=== PATIENT | male | born 1930 | race Caucasian/White ===

== ENCOUNTER 2018-03-30 09:30 | Inpatient (IN) | payer MEDICARE, BC ==
[2018-03-30] MEDS ORDERED: Lactated Ringers 1,000 ML IV SCH ×4 (09:45→20:30)
[2018-03-30] MEDS ORDERED: Piperacillin/Tazobactam 4.5 GM in Sodium Chloride 0.9% 100 ML IV ONE (09:45)
[2018-03-30] MEDS ORDERED: Piperacillin/Tazobactam/Dext 4.5 GM in Premix Bag 1 BAG IV ONE (10:00)
--- NOTE | 2018-03-30 11:00 | CR ---
CHEST: 2 view CLINICAL HISTORY:Septic COMPARISON:28 February 2018 FINDINGS: Pulmonary vascularity is cephalized. Heart is mildly enlarged. There are atherosclerotic c hanges in the aorta.. There is some mild generalized interstitial prominence. There is some patchy density in the left lowe r lobe IMPRESSION: Vascular cephalization may represent pulmonary venous hypertension. The there is mild ge neralized interstitial prominence which may represent mild interstitial edema. The some of this is ch ronic Patchy left lower lobe density may represent pneumonic infiltrate or patchy atelectasis
[2018-03-30] MEDS ORDERED: Furosemide 40 MG/4 ML VIAL IVPUSH ONE (12:15)
[2018-03-30] MEDS ORDERED: Albuterol/Ipratropium 3.0-0.5 MG/3 ML Neb Soln NEB ONE (12:15)
--- NOTE | 2018-03-30 12:47 | PCM.HP ---
H&P History of Present Illness - General Date of Service: 03/30/18 Admit Problem/Dx: Admission Diagnosis/Problem Admission Diagnosis/Problem Pneumonia Source of Information: Patient, Family, Provider, RN Notes Reviewed History Limitations: Reports: Respiratory Distress - History of Present Illness Initial Comments - Free Text/Narative: Mr. Florez is an 88-year-old gentleman who is admitted through the emergency department with shortness of breath, fever, and weakness secondary to right lung pneumonia and sepsis. Proximally one month ago was hospitalized with a perirectal abscess and then was transferred to [facility] in [place] for further evaluation and management. He underwent debridement of the abscess which is still open and has remained on antibiotic therapy with ciprofloxacin. He seemed to be progressing well until this morning when he noted shortness of breath, cough, and weakness. On evaluation in the emergency department he is noted to have a probable right lung infiltrate associated with elevation in white blood cell count. While in the emergency department developed more acute respiratory failure with hypoxia and was placed on noninvasive positive pressure ventilation. Blood cultures have been obtained and he's received initial antibiotic therapy in the emergency department with Zosyn and vancomycin. Right Pain Score (Numeric/FACES): 2 - Related Data Allergies/Adverse Reactions: Allergies Allergy/AdvReac Type Severity Reaction Status Date / Time diphenhydramine Allergy Itching Verified 03/30/18 10:28 [From Unisom (diphenhydramine)] ketorolac [From Toradol] Allergy Itching Verified 03/30/18 10:28 Home Medications: Home Meds Allopurinol [Zyloprim] 300 mg PO DAILY 02/20/18 [History] Doxazosin Mesylate [Cardura] 8 mg PO DAILY 02/20/18 [History] Levothyroxine Sodium [Levo-T] 75 mcg PO DAILY 02/20/18 [History] Lisinopril 20 mg PO DAILY 02/20/18 [History] Nitroglycerin [Nitrostat] 0.4 mg PO ASDIRECTED 02/20/18 [History] Simvastatin 20 mg PO DAILY 02/20/18 [History] Warfarin Sodium 2.5 mg PO DAILY 02/20/18 [History] hydroCHLOROthiazide [Hydrochlorothiazide] 12.5 mg PO DAILY 02/20/18 [History] Acetaminophen [Tylenol] 2 tab PO Q4HR PRN 03/30/18 [History] Aspirin [Halfprin] 81 mg PO DAILY 03/30/18 [History] Furosemide [Lasix] 20 mg PO BID 03/30/18 [History] Magnesium Oxide 400 mg PO BID 03/30/18 [History] Metoprolol Succinate [Toprol XL] 25 mg PO DAILY 03/30/18 [History] Past Medical History HEENT History: Reports: Cataract, Impaired Vision Cardiovascular History: Reports: High Cholesterol, Hypertension, Stents Gastrointestinal History: Reports: Other (See Below) Other Gastrointestinal History: "sore rectum" Musculoskeletal History: Reports: Arthritis, Gout Endocrine/Metabolic History: Reports: Hypothyroidism Hematologic History: Reports: Anticoagulation Therapy Oncologic (Cancer) History: Reports: Other (See Below) Other Oncologic History: "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" Dermatologic History: Reports: Other (See Below) - Infectious Disease History Infectious Disease History: Reports: Measles, Mumps - Past Surgical History Head Surgeries/Procedures: Reports: None HEENT Surgical History: Reports: Cataract Surgery, Oral Surgery Cardiovascular Surgical History: Reports: Coronary Artery Stent GI Surgical History: Reports: Appendectomy, Colon, Colonoscopy, Other (See Below ) Other GI Surgeries/Procedures: 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 Endocrine Surgical History: Reports: None Musculoskeletal Surgical History: Reports: Amputation, Knee Replacement, Shoulder Surgery Oncologic Surgical History: Reports: Other (See Below) Other Oncologic Surgeries/Procedures: right middle finger Social & Family History - Family History Family Medical History: Noncontributory - Tobacco Use Smoking Status *Q: Former Smoker Used Tobacco, but Quit: Yes Month/Year Tobacco Last Used: 1975 - Caffeine Use Caffeine Use: Reports: Coffee, Tea - Recreational Drug Use Recreational Drug Use: No H&P Review of Systems - Review of Systems: Review Of Systems: See Below General: Reports: Fever, Chills, Weakness, Diaphoresis, Decreased Appetite HEENT: Reports: No Symptoms Pulmonary: Reports: Shortness of Breath, Cough. Denies: Wheezing, Sputum, Hemoptysis Cardiovascular: Reports: Dyspnea on Exertion, Edema. Denies: Chest Pain, Palpitations, Orthopnea, PND, Lightheadedness Gastrointestinal: Reports: No Symptoms Genitourinary: Reports: No Symptoms Musculoskeletal: Reports: No Symptoms Skin: Reports: No Symptoms Psychiatric: Reports: No Symptoms Neurological: Reports: No Symptoms Hematologic/Lymphatic: Reports: No Symptoms Immunologic: Reports: No Symptoms Exam - Exam Exam: See Below - Vital Signs Vital Signs: Last Vital Signs Temp 212.5 F H 03/30/18 11:14 Pulse 89 03/30/18 11:22 Resp 28 H 03/30/18 11:22 BP 123/65 03/30/18 12:27 Pulse Ox 84 L 03/30/18 11:22 Weight: 180 lb - Exam Quality Assessment: Supplemental Oxygen (BiPAP), Urinary Catheter, DVT Prophylaxis General: Alert, Oriented, Cooperative, Moderate Distress HEENT: Conjunctiva Clear, Hearing Intact, Normal Nasal Septum, Posterior Pharynx Clear, Pupils Equal. No: Mucosa Moist & Wright Neck: Supple, Trachea Midline, +2 Carotid Pulse wo Bruit Lungs: Decreased Breath Sounds, Rales, Wheezing. No: Crackles, Rhonchi Cardiovascular: Regular Rate, Regular Rhythm, Normal S1, Normal S2. No: Systolic Murmur, Diastolic Murmur GI/Abdominal Exam: Soft, Non-Tender, No Organomegaly, No Distention Back Exam: Normal Inspection, Full Range of Motion Extremities: Non-Tender, Pedal Edema Skin: Wound (Open wound in the perineum from previous perirectal abscess) Neurological: Cranial Nerves Intact, Strength Equal Bilateral, Normal Speech, Normal Tone, Sensation Intact. No: Focal Deficit Neuro Extensive - Mental Status: Alert, Oriented x3, Normal Mood/Affect, Normal Cognition, Memory Intact - Patient Data Lab Results Last 24 hrs: Laboratory Results - last 24 hr 03/30/18 03/30/18 03/30/18 Range/Units 10:01 10:01 10:01 WBC 24.0 H (4.5-11.0) K/uL RBC 3.37 L (4.30-5.90) M/uL Hgb 11.6 L D (12.0-15.0) g/dL Hct 35.0 L (40.0-54.0) % MCV 104 H (80-98) fL MCH 34 H (27-31) pg MCHC 33 (32-36) % Plt Count 301 (150-400) K/uL Neut % (Auto) 84 H (36-66) % Lymph % (Auto) 7 L (24-44) % Madison % (Auto) 9 H (2-6) % Eos % (Auto) 0 L (2-4) % Baso % (Auto) 0 (0-1) % PT 11.3 (9.5-12.0) sec INR 1.03 (0.80-1.20) Sodium 137 L (140-148) mmol/L Potassium 3.7 (3.6-5.2) mmol/L Chloride 103 (100-108) mmol/L Carbon Dioxide 25 (21-32) mmol/L Anion Gap 12.7 (5.0-14.0) mmol/L BUN 17 (7-18) mg/dL Creatinine 1.1 (0.8-1.3) mg/dL Est Cr Clr Drug Dosing 47.93 mL/min Estimated GFR (MDRD) > 60 (>60) Glucose 94 (74-106) mg/dL Lactic Acid (0.4-2.0) mmol/L Calcium 8.3 L (8.5-10.1) mg/dL Total Bilirubin 0.8 (0.2-1.0) mg/dL AST 19 (15-37) U/L ALT 19 (12-78) U/L Alkaline Phosphatase 117 H (46-116) U/L Total Protein 6.2 L (6.4-8.2) g/dL Albumin 2.5 L (3.4-5.0) g/dL Globulin 3.7 H (2.3-3.5) g/dL Albumin/Globulin Ratio 0.7 L (1.2-2.2) 03/30/18 Range/Units 10:01 WBC (4.5-11.0) K/uL RBC (4.30-5.90) M/uL Hgb (12.0-15.0) g/dL Hct (40.0-54.0) % MCV (80-98) fL MCH (27-31) pg MCHC (32-36) % Plt Count (150-400) K/uL Neut % (Auto) (36-66) % Lymph % (Auto) (24-44) % Madison % (Auto) (2-6) % Eos % (Auto) (2-4) % Baso % (Auto) (0-1) % PT (9.5-12.0) sec INR (0.80-1.20) Sodium (140-148) mmol/L Potassium (3.6-5.2) mmol/L Chloride (100-108) mmol/L Carbon Dioxide (21-32) mmol/L Anion Gap (5.0-14.0) mmol/L BUN (7-18) mg/dL Creatinine (0.8-1.3) mg/dL Est Cr Clr Drug Dosing mL/min Estimated GFR (MDRD) (>60) Glucose (74-106) mg/dL Lactic Acid 2.2 H (0.4-2.0) mmol/L Calcium (8.5-10.1) mg/dL Total Bilirubin (0.2-1.0) mg/dL AST (15-37) U/L ALT (12-78) U/L Alkaline Phosphatase (46-116) U/L Total Protein (6.4-8.2) g/dL Albumin (3.4-5.0) g/dL Globulin (2.3-3.5) g/dL Albumin/Globulin Ratio (1.2-2.2) Result Diagrams: 03/30/18 10:01 03/30/18 10:01 *Q Meaningful Use (ADM) - VTE Risk Assess *Q Each Risk Factor Represents 1 Point: Swollen Legs, Current, Congestive heart failure (CHF) Total Score 1 Point Risk Factors: 2 Each Risk Factor Represents 2 Points: None Total Score 2 Point Risk Factors: 0 Each Risk Factor Represents 3 Points: Age 75 Years or Greater Total Score 3 Point Risk Factors: 3 Each Risk Factor Represents 5 Points: None Total Score 5 Point Risk Factors: 0 Venous Thromboembolism Risk Factor Score *Q: 5 Problem List Initiated/Reviewed/Updated: Yes Orders Last 24hrs: Active Orders 24 hr Category Date Time Status Patient Status Manage Transfer [TRANSFER] Routine ADT 03/30/18 12:35 Ordered Francis Catheter Insertion [Insert Urinary Catheter] [OM. Care 03/30/18 11:15 Ordered PC] Q24H RT Aerosol Therapy [RC] ASDIRECTED Care 03/30/18 12:16 Active Urinary Catheter Assessment [RC] ASDIRECTED Care 03/30/18 11:02 Active CULTURE BLOOD [BC] Urgent Lab 03/30/18 09:55 Received CULTURE BLOOD [BC] Urgent Lab 03/30/18 10:00 Received CULTURE URINE [RM] Stat Lab 03/30/18 10:31 Received UA W/MICROSCOPIC [URIN] Stat Lab 03/30/18 09:43 Ordered Lactated Ringers [Ringers, Lactated] 1,000 ml Med 03/30/18 09:45 Active IV ASDIRECTED Vancomycin 1.5 gm Med 03/30/18 12:15 Active Sodium Chloride 0.9% [Normal Saline] 250 ml IV ONETIME Blood Culture x2 Reflex Set [OM.PC] Stat Oth 03/30/18 09:41 Ordered Blood Culture x2 Reflex Set [OM.PC] Urgent Oth 03/30/18 11:23 Ordered Resuscitation Status Routine Resus Stat 03/30/18 12:39 Ordered Medication Orders Lactated Ringer's (Ringers, Lactated) 1,000 mls @ 999 mls/hr IV ASDIRECTED INDRA Last Admin: 03/30/18 10:18 Dose: 999 mls/hr Vancomycin HCl 1.5 gm/ Sodium (Chloride) 250 mls @ 150 mls/hr IV ONETIME ONE Stop: 03/30/18 13:54 Last Admin: 03/30/18 12:20 Dose: 150 mls/hr Assessment/Plan Comment:: ASSESSMENT AND PLAN RIGHT LUNG PNEUMONIA WITH SEPSIS-abrupt onset of symptoms this morning, associated with hypoxic respiratory failure. Chest x-ray shows evidence of a right lung infiltrate and labs document significant leukocytosis. He has a recent history of perirectal abscess requiring surgical drainage and ongoing antibiotic therapy. -Blood cultures pending -Aggressive IV fluid replacement per sepsis protocol -Because of recent antibiotic therapy will proceed with broad-spectrum IV antibiotics; vancomycin, Zosyn, and Azactam, pending culture results ACUTE HYPOXIC RESPIRATORY FAILURE-secondary to pneumonia and sepsis, question of possible fluid overload with pulmonary edema. He has improved since being placed on noninvasive positive pressure ventilation. -Continue BiPAP -Supplemental oxygen as needed -Nebulized albuterol and duo nebs PERIRECTAL ABSCESS-status post surgical debridement and ongoing antibiotic therapy -Continue current wound cares MAINTENANCE ISSUES -DVT prophylaxis; Lovenox 40 mg subcutaneous daily -GI prophylaxis; Protonix 40 mg by mouth daily -Francis catheter; we use to closely monitor urine output, remove as soon as possible -Nutrition; regular diet -Nicotine dependence; not required CODE STATUS-DNR/DNI ADMISSION STATUS-patient will be admitted to inpatient status, expect at least a 2 night hospital stay for evaluation and management of problems as outlined above. At the time of this admission I do not reasonably expected evaluation and management of this problem will require more than a 96 hour hospital stay. DISPOSITION-anticipate discharge to home after the hospital stay. PRIMARY CARE PROVIDER-Dr. Jad Butterfield
--- NOTE | 2018-03-30 12:54 | EDM.PDOC ---
ED HPI GENERAL MEDICAL PROBLEM - General Chief Complaint: Fever Stated Complaint: [facility] Time Seen by Provider: 03/30/18 09:40 Source of Information: Reports: Patient, EMS, Family History Limitations: Reports: No Limitations - History of Present Illness INITIAL COMMENTS - FREE TEXT/NARRATIVE: 88 yo with hx of prior CA, recent hospitalization at [facility] [place] for jessica-rectal abscess and concern for possible necrotizing infection at this site. He presents today from his [facility] for fever. Noted to be febrile overnight. Accompanied by mild cough. Denies confusion, headache, significant pain. Rectal wound is stable, denies increasing pain or discharge. He is currently on ciprofloxacin. Has an indwelling doe since surgery. Acting at baseline per his family who accompany him. Right Pain Score (Numeric/FACES): 2 - Related Data Allergies Allergy/AdvReac Type Severity Reaction Status Date / Time diphenhydramine Allergy Itching Verified 03/30/18 10:28 [From Unisom (diphenhydramine)] ketorolac [From Toradol] Allergy Itching Verified 03/30/18 10:28 Home Meds: Home Meds Allopurinol [Zyloprim] 300 mg PO DAILY 02/20/18 [History] Doxazosin Mesylate [Cardura] 8 mg PO DAILY 02/20/18 [History] Levothyroxine Sodium [Levo-T] 75 mcg PO DAILY 02/20/18 [History] Lisinopril 20 mg PO DAILY 02/20/18 [History] Metoprolol Tartrate 25 mg PO DAILY 02/20/18 [History] Nitroglycerin [Nitrostat] 0.4 mg PO ASDIRECTED 02/20/18 [History] Simvastatin 20 mg PO DAILY 02/20/18 [History] Warfarin Sodium 2.5 mg PO DAILY 02/20/18 [History] hydroCHLOROthiazide [Hydrochlorothiazide] 12.5 mg PO DAILY 02/20/18 [History] Acetaminophen [Tylenol] 2 tab PO Q4HR PRN 03/30/18 [History] Aspirin [Halfprin] 81 mg PO DAILY 03/30/18 [History] Furosemide [Lasix] 20 mg PO BID 03/30/18 [History] Magnesium Oxide 400 mg PO BID 03/30/18 [History] Past Medical History HEENT History: Reports: Cataract, Impaired Vision Cardiovascular History: Reports: High Cholesterol, Hypertension, Stents Gastrointestinal History: Reports: Other (See Below) Other Gastrointestinal History: "sore rectum" Musculoskeletal History: Reports: Arthritis, Gout Endocrine/Metabolic History: Reports: Hypothyroidism Hematologic History: Reports: Anticoagulation Therapy Oncologic (Cancer) History: Reports: Other (See Below) Other Oncologic History: "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" Dermatologic History: Reports: Other (See Below) - Infectious Disease History Infectious Disease History: Reports: Measles, Mumps - Past Surgical History Head Surgeries/Procedures: Reports: None HEENT Surgical History: Reports: Cataract Surgery, Oral Surgery Cardiovascular Surgical History: Reports: Coronary Artery Stent GI Surgical History: Reports: Appendectomy, Colon, Colonoscopy, Other (See Below ) Other GI Surgeries/Procedures: 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 Endocrine Surgical History: Reports: None Musculoskeletal Surgical History: Reports: Amputation, Knee Replacement, Shoulder Surgery Oncologic Surgical History: Reports: Other (See Below) Other Oncologic Surgeries/Procedures: right middle finger Social & Family History - Family History Family Medical History: Noncontributory - Tobacco Use Smoking Status *Q: Former Smoker Used Tobacco, but Quit: Yes Month/Year Tobacco Last Used: 1975 - Caffeine Use Caffeine Use: Reports: Coffee, Tea - Recreational Drug Use Recreational Drug Use: No ED ROS GENERAL - Review of Systems Review Of Systems: See Below Constitutional: Reports: Fever, Chills ED EXAM, SEPSIS - Physical Exam Exam: See Below Exam Limited By: No Limitations General Appearance: Alert, WD/WN Nose: Normal Inspection Throat/Mouth: Normal Inspection Head: Atraumatic, Normocephalic Neck: Supple, Non-Tender, Full Range of Motion Respiratory/Chest: Lungs Clear, No Accessory Muscle Use Cardiovascular: Regular Rate, Rhythm GI/Abdominal Exam: Soft, Non-Tender Rectal (Males) Exam: Other (rectal wound with healthy appearing beefy-red tissue , no discharge) Back: Normal Inspection Extremities: Normal Inspection Neurological: Alert, Oriented Psychiatric: Normal Affect Skin: Warm, Dry Course - Vital Signs Last Recorded V/S: Last Vital Signs Temp 100.3 C H 03/30/18 11:14 Pulse 89 03/30/18 11:22 Resp 28 H 03/30/18 11:22 BP 123/65 03/30/18 12:27 Pulse Ox 84 L 03/30/18 11:22 - Orders/Labs/Meds Orders: Active Orders 24 hr Category Date Time Status CULTURE BLOOD [BC] Urgent Lab 03/30/18 09:55 Received CULTURE BLOOD [BC] Urgent Lab 03/30/18 10:00 Received CULTURE URINE [RM] Stat Lab 03/30/18 10:31 Received UA W/MICROSCOPIC [URIN] Stat Lab 03/30/18 09:43 Ordered Vancomycin 1.5 gm Med 03/30/18 12:15 Active Sodium Chloride 0.9% [Normal Saline] 250 ml IV ONETIME Blood Culture x2 Reflex Set [OM.PC] Stat Oth 03/30/18 09:41 Ordered Blood Culture x2 Reflex Set [OM.PC] Urgent Oth 03/30/18 11:23 Ordered Medication Orders Acetaminophen (Tylenol) 650 mg PO Q4H PRN PRN Reason: Pain (Mild 1-3)/fever Albuterol (Proventil Neb Soln) 2.5 mg NEB Q4H PRN PRN Reason: Shortness Of Breath/wheezing Albuterol/Ipratropium (Duoneb 3.0-0.5 Mg/3 Ml) 3 ml INH ONETIME [facility] Allopurinol (Zyloprim) 300 mg PO DAILY [facility] Aspirin (Halfprin) 81 mg PO DAILY [facility] Hydrochlorothiazide (Hydrochlorothiazide) 12.5 mg PO DAILY [facility] Vancomycin HCl 1.5 gm/ Sodium (Chloride) 250 mls @ 150 mls/hr IV ONETIME ONE Stop: 03/30/18 13:54 Last Admin: 03/30/18 12:20 Dose: 150 mls/hr Aztreonam 1 gm/ Sodium (Chloride) 100 mls @ 200 mls/hr IV Q8HR [facility] Piperacillin Sod/Tazobactam (Sod 3.375 gm/ Sodium Chloride) 50 mls @ 100 mls/ hr IV Q6H [facility] Lactobacillus Rhamnosus (Culturelle) 2 cap PO BID [facility] Lisinopril (Prinivil) 20 mg PO DAILY [facility] Magnesium Hydroxide (Milk Of Magnesia) 30 ml PO Q12H PRN PRN Reason: Constipation Magnesium Oxide (Magnesium Oxide) 400 mg PO BID [facility] Metoprolol Tartrate (Lopressor) 25 mg PO DAILY [facility] Non-Formulary Medication (Doxazosin Mesylate [Cardura]) 8 mg PO DAILY [facility] Non-Formulary Medication (Levothyroxine Sodium [Levo-T]) 75 mcg PO DAILY [facility] Ondansetron HCl (Zofran) 4 mg IV Q4H PRN PRN Reason: Nausea/Vomiting Oxycodone HCl (Oxycodone) 5 mg PO Q4H PRN PRN Reason: Pain (moderate 4-6) Pantoprazole Sodium (Protonix Iv) 40 mg IVPUSH Q24H [facility] Polyethylene Glycol (Miralax) 17 gm PO DAILY PRN PRN Reason: Constipation Senna/Docusate Sodium (Senna Plus) 1 tab PO BID PRN PRN Reason: Constipation Simvastatin (Zocor) 20 mg PO DAILY [facility] Sodium Chloride (Saline Flush) 10 ml FLUSH ASDIRECTED PRN PRN Reason: Keep Vein Open Vancomycin HCl (Vancomycin) 1 gm IV .PHARMACY TO DOSE [facility] Warfarin Sodium (Coumadin) 2.5 mg PO DAILY [facility] Labs: Laboratory Tests 03/30/18 03/30/18 03/30/18 Range/Units 10:01 10:01 10:01 WBC 24.0 H (4.5-11.0) K/uL RBC 3.37 L (4.30-5.90) M/uL Hgb 11.6 L D (12.0-15.0) g/dL Hct 35.0 L (40.0-54.0) % MCV 104 H (80-98) fL MCH 34 H (27-31) pg MCHC 33 (32-36) % Plt Count 301 (150-400) K/uL Neut % (Auto) 84 H (36-66) % Lymph % (Auto) 7 L (24-44) % [place] % (Auto) 9 H (2-6) % Eos % (Auto) 0 L (2-4) % Baso % (Auto) 0 (0-1) % PT 11.3 (9.5-12.0) sec INR 1.03 (0.80-1.20) Sodium 137 L (140-148) mmol/L Potassium 3.7 (3.6-5.2) mmol/L Chloride 103 (100-108) mmol/L Carbon Dioxide 25 (21-32) mmol/L Anion Gap 12.7 (5.0-14.0) mmol/L BUN 17 (7-18) mg/dL Creatinine 1.1 (0.8-1.3) mg/dL Est Cr Clr Drug Dosing 47.93 mL/min Estimated GFR (MDRD) > 60 (>60) Glucose 94 (74-106) mg/dL Lactic Acid (0.4-2.0) mmol/L Calcium 8.3 L (8.5-10.1) mg/dL Total Bilirubin 0.8 (0.2-1.0) mg/dL AST 19 (15-37) U/L ALT 19 (12-78) U/L Alkaline Phosphatase 117 H (46-116) U/L Total Protein 6.2 L (6.4-8.2) g/dL Albumin 2.5 L (3.4-5.0) g/dL Globulin 3.7 H (2.3-3.5) g/dL Albumin/Globulin Ratio 0.7 L (1.2-2.2) 03/30/18 Range/Units 10:01 WBC (4.5-11.0) K/uL RBC (4.30-5.90) M/uL Hgb (12.0-15.0) g/dL Hct (40.0-54.0) % MCV (80-98) fL MCH (27-31) pg MCHC (32-36) % Plt Count (150-400) K/uL Neut % (Auto) (36-66) % Lymph % (Auto) (24-44) % [place] % (Auto) (2-6) % Eos % (Auto) (2-4) % Baso % (Auto) (0-1) % PT (9.5-12.0) sec INR (0.80-1.20) Sodium (140-148) mmol/L Potassium (3.6-5.2) mmol/L Chloride (100-108) mmol/L Carbon Dioxide (21-32) mmol/L Anion Gap (5.0-14.0) mmol/L BUN (7-18) mg/dL Creatinine (0.8-1.3) mg/dL Est Cr Clr Drug Dosing mL/min Estimated GFR (MDRD) (>60) Glucose (74-106) mg/dL Lactic Acid 2.2 H (0.4-2.0) mmol/L Calcium (8.5-10.1) mg/dL Total Bilirubin (0.2-1.0) mg/dL AST (15-37) U/L ALT (12-78) U/L Alkaline Phosphatase (46-116) U/L Total Protein (6.4-8.2) g/dL Albumin (3.4-5.0) g/dL Globulin (2.3-3.5) g/dL Albumin/Globulin Ratio (1.2-2.2) Meds: Medications Generic Name Dose Route Start Last Admin Trade Name Freq PRN Reason Stop Dose Admin Acetaminophen 650 mg 03/30/18 13:03 Tylenol PO Q4H PRN Pain (Mild 1-3)/fever Albuterol 2.5 mg 03/30/18 13:03 Proventil Neb Soln NEB Q4H PRN Shortness Of Breath/wheezing Albuterol/Ipratropium 3 ml 03/30/18 13:03 Duoneb 3.0-0.5 Mg/3 Ml INH ONETIME [facility] Allopurinol 300 mg 03/31/18 09:00 Zyloprim PO DAILY [facility] Aspirin 81 mg 03/31/18 09:00 Halfprin PO DAILY [facility] Hydrochlorothiazide 12.5 mg 03/31/18 09:00 Hydrochlorothiazide PO DAILY [facility] Vancomycin HCl 1.5 gm/ Sodium 250 mls @ 150 mls/hr 03/30/18 12:15 03/30/18 12 :20 Chloride IV 03/30/18 13:54 150 mls/hr ONETIME ONE Administration Aztreonam 1 gm/ Sodium 100 mls @ 200 mls/hr 03/30/18 14:00 Chloride IV Q8HR [facility] Piperacillin Sod/Tazobactam 50 mls @ 100 mls/hr 03/30/18 13:03 Sod 3.375 gm/ Sodium Chloride IV Q6H [facility] Lactobacillus Rhamnosus 2 cap 03/30/18 13:03 Culturelle PO BID [facility] Lisinopril 20 mg 03/31/18 09:00 Prinivil PO DAILY [facility] Magnesium Hydroxide 30 ml 03/30/18 13:03 Milk Of Magnesia PO Q12H PRN Constipation Magnesium Oxide 400 mg 03/30/18 21:00 Magnesium Oxide PO BID [facility] Metoprolol Tartrate 25 mg 03/31/18 09:00 Lopressor PO DAILY [facility] Non-Formulary Medication 8 mg 03/31/18 09:00 Doxazosin Mesylate [Cardura] PO DAILY [facility] Non-Formulary Medication 75 mcg 03/31/18 09:00 Levothyroxine Sodium [Levo-T] PO DAILY [facility] Ondansetron HCl 4 mg 03/30/18 13:03 Zofran IV Q4H PRN Nausea/Vomiting Oxycodone HCl 5 mg 03/30/18 13:03 Oxycodone PO Q4H PRN Pain (moderate 4-6) Pantoprazole Sodium 40 mg 03/30/18 13:03 Protonix Iv IVPUSH Q24H [facility] Polyethylene Glycol 17 gm 03/30/18 13:03 Miralax PO DAILY PRN Constipation Senna/Docusate Sodium 1 tab 03/30/18 13:03 Senna Plus PO BID PRN Constipation Simvastatin 20 mg 03/31/18 09:00 Zocor PO DAILY [facility] Sodium Chloride 10 ml 03/30/18 13:03 Saline Flush FLUSH ASDIRECTED PRN Keep Vein Open Vancomycin HCl 1 gm 03/30/18 13:03 Vancomycin IV .PHARMACY TO DOSE [facility] Warfarin Sodium 2.5 mg 03/31/18 09:00 Coumadin PO DAILY [facility] Discontinued Medications Generic Name Dose Route Start Last Admin Trade Name Freq PRN Reason Stop Dose Admin Albuterol/Ipratropium 3 ml 03/30/18 12:15 03/30/18 12:31 Duoneb 3.0-0.5 Mg/3 Ml NEB 03/30/18 12:16 3 ml ONETIME ONE Administration Furosemide 40 mg 03/30/18 12:15 03/30/18 12:27 Lasix IVPUSH 03/30/18 12:16 40 mg ONETIME ONE Administration Lactated Ringer's 1,000 mls @ 999 mls/hr 03/30/18 09:45 03/30/18 10:18 Ringers, Lactated IV 999 mls/hr ASDIRECTED [facility] Administration Piperacillin/Tazobactam/ 100 mls @ 200 mls/hr 03/30/18 10:00 03/30/18 10:18 Dextrose 4.5 gm/ Premix IV 03/30/18 10:29 200 mls/hr Q6H ONE Administration - Re-Assessments/Exams Free Text/Narrative Re-Assessment/Exam: 80-year-old gentleman with recent history of perirectal abscess and concern for necrotizing infection presents with fever and concern for sepsis. He was initially resuscitated with a lactated Ringer's infusion, broad-spectrum antibiotics were administered upon arrival in the and labs are drawn. His initial workup was significant for a new right lower lobe infiltrate on chest x- ray. Blood work showed a leukocytosis at 24 as well as a mild elevation in his lactate. His old Doe was exchanged for a new, UA was eventually drawn was still pending at time of admission While his workup was undertaken he developed increasing dyspnea and increased work of breathing. He was noted to desat in the high 70s on room air and required increasing levels of oxygen via nasal cannula. he was rigoring. Thoracic ultrasound performed at the bedside showed diffuse B lines indicative of pulmonary edema as well as a right pleural effusion and area concerning for possible consolidation as shown on chest x-ray. I am concerned that the fluid he received during his sepsis resuscitation may have tipped him into heart failure. Given his worsening respiratory status we did transition him to BiPAP and is more comfortable on this with improved oxygen saturations. Lengthy discussion with his family regarding his goals of care, his daughter and son were involved with this. We have decided that his CODE STATUS will be DNR/DNR. He is agreeable to BiPAP will not escalate to intubation. As it became more evident that he likely had a pulmonary infection we added vancomycin to cover HCAP The wound near his rectum looks healthy, no drainage, of course cannot rule out recurrent abscess without CT will defer this for now given tenuous respiratory status and likely alternative source for sepsis He is being admitted to the ICU for further cares 03/30/18 12:56 Departure - Departure Time of Disposition: 12:30 Disposition: Admitted As Inpatient 66 Clinical Impression: Acute respiratory failure with hypoxia Sepsis Qualifiers: Sepsis type: sepsis due to unspecified organism Qualified Code(s): A41.9 - Sepsis, unspecified organism Pneumonia Qualifiers: Pneumonia type: due to unspecified organism Pulmonary edema Qualifiers: Chronicity: acute Qualified Code(s): J81.0 - Acute pulmonary edema - Discharge Information *PRESCRIPTION DRUG MONITORING PROGRAM REVIEWED*: No *COPY OF PRESCRIPTION DRUG MONITORING REPORT IN PATIENT KEENAN: No Critical Care Note - Critical Care Note Total Time (mins): 33 Comments: 33 minutes of critical care time were spent resuscitate his abnormal vital signs , interpreting diagnostic tests and imaging, managing his tenuous respiratory status including transitioned to BiPAP, as well as discussion with his family and patient. - My Orders Last 24 Hours: My Active Orders 03/30/18 09:41 Blood Culture x2 Reflex Set [OM.PC] Stat 03/30/18 09:43 UA W/MICROSCOPIC [URIN] Stat 03/30/18 10:31 CULTURE URINE [RM] Stat 03/30/18 12:15 Vancomycin 1.5 gm Sodium Chloride 0.9% [Normal Saline] 250 ml IV ONETIME - Assessment/Plan Last 24 Hours: My Active Orders 03/30/18 09:41 Blood Culture x2 Reflex Set [OM.PC] Stat 03/30/18 09:43 UA W/MICROSCOPIC [URIN] Stat 03/30/18 10:31 CULTURE URINE [RM] Stat 03/30/18 12:15 Vancomycin 1.5 gm Sodium Chloride 0.9% [Normal Saline] 250 ml IV ONETIME
[2018-03-30] MEDS ORDERED: Magnesium Hydroxide 400 MG/5 ML Susp 30 ML Cup PO PRN (13:03)
[2018-03-30] MEDS ORDERED: Albuterol/Ipratropium 3.0-0.5 MG/3 ML Neb Soln INH SCH (13:03)
[2018-03-30] MEDS ORDERED: Albuterol 0.083% 2.5 MG/3 ML Neb Soln NEB PRN (13:03)
[2018-03-30] MEDS ORDERED: Vancomycin 1 GM SDV IV SCH (13:03)
[2018-03-30] MEDS ORDERED: oxyCODONE 5 MG Tab PO PRN (13:03)
[2018-03-30] MEDS ORDERED: Sodium Chloride 0.9% 10 ML Syringe FLUSH PRN (13:03)
[2018-03-30] MEDS ORDERED: Ondansetron 4 MG/2 ML SDV IV PRN (13:03)
[2018-03-30] MEDS ORDERED: Polyethylene Glycol 3350 Powder 17 GM Packet PO PRN (13:03)
[2018-03-30] MEDS ORDERED: Aztreonam 1 GM in Sodium Chloride 0.9% 100 ML IV SCH (14:00)
[2018-03-30] MEDS ORDERED: Warfarin 2.5 MG Tab PO SCH (14:00)
[2018-03-30] MEDS: Pantoprazole 40 MG Vial IVPUSH SCH (14:11)
[2018-03-30] MEDS: Lactobacillus Rhamnosus GG (Probiotic) Cap PO SCH ×2 (14:12→20:59)
[2018-03-30] MEDS: Aztreonam/Dextrose-Water 1 GM in Premix Bag 1 BAG IV SCH ×2 (14:16→22:36)
[2018-03-30] MEDS: Acetaminophen 325 MG Tab PO PRN ×2 (14:50→19:47)
[2018-03-30] MEDS ORDERED: Lactated Ringers 1,000 ML IV ONE (15:03)
[2018-03-30] MEDS: Enoxaparin 40 MG/0.4 ML Syringe SUBCUT SCH (16:00)
[2018-03-30] MEDS: Piperacillin/Tazobactam/Dext 3.375 GM in Premix Bag 1 BAG IV SCH ×2 (16:14→23:05)
[2018-03-30] MEDS ORDERED: Norepinephrine 4 MG/4 ML SDV ONE (18:37)
[2018-03-30] MEDS ORDERED: Dextrose 5% in Water 250 ML ONE (18:39)
[2018-03-30] MEDS: Norepinephrine 4 MG in Dextrose 5% in Water 246 ML IV SCH ×2 (18:44)
[2018-03-30] MEDS: Magnesium Oxide 400 MG Tab PO SCH (20:59)
[2018-03-30] MEDS: Vancomycin 1.2 GM in Sodium Chloride 0.9% 250 ML IV SCH (23:36)
[2018-03-31] MEDS: Piperacillin/Tazobactam/Dext 3.375 GM in Premix Bag 1 BAG IV SCH ×4 (03:55→22:09)
[2018-03-31] MEDS: Norepinephrine 4 MG in Dextrose 5% in Water 246 ML IV SCH ×4 (05:08→16:50)
[2018-03-31] MEDS: Aztreonam/Dextrose-Water 1 GM in Premix Bag 1 BAG IV SCH ×3 (05:54→21:34)
[2018-03-31] MEDS: Acetaminophen 325 MG Tab PO PRN ×5 (06:31→22:47)
[2018-03-31] MEDS ORDERED: Potassium Chloride 20 MEQ Tab.ER PO ONE (08:30)
[2018-03-31] MEDS: Aspirin 81 MG Tab.EC PO SCH (08:36)
[2018-03-31] MEDS: Lactobacillus Rhamnosus GG (Probiotic) Cap PO SCH ×2 (08:36→20:55)
[2018-03-31] MEDS: Levothyroxine 25 MCG Tab PO SCH (08:36)
[2018-03-31] MEDS: Hydrochlorothiazide 12.5 MG Cap PO SCH (08:37)
[2018-03-31] MEDS: Allopurinol 300 MG Tab PO SCH (08:37)
[2018-03-31] MEDS: Simvastatin 20 MG Tab PO SCH (08:37)
[2018-03-31] MEDS: Metoprolol Succinate 25 MG Tab.ER PO SCH (08:37)
[2018-03-31] MEDS: Magnesium Oxide 400 MG Tab PO SCH ×2 (08:37→20:55)
[2018-03-31] MEDS: Lisinopril 20 MG Tab PO SCH (08:37)
[2018-03-31] MEDS ORDERED: Doxazosin 4 MG Tab PO SCH (09:00)
[2018-03-31] MEDS ORDERED: Lactated Ringers 1,000 ML IV SCH ×2 (09:00→16:00)
[2018-03-31] MEDS ORDERED: Metoprolol Tartrate 50 MG Tab PO SCH (09:00)
--- NOTE | 2018-03-31 09:01 | PCM.PN ---
- General Info Date of Service: 03/31/18 Subjective Update: Mr. Florez has improved since admission, currently has adequate oxygenation on supplemental oxygen via nasal cannula, no longer requiring noninvasive positive pressure ventilation. Blood pressure is stabilized with aggressive fluid replacement and use of norepinephrine. He is alert and interactive, reports that he is comfortable with no significant pain. Functional Status: Reports: Pain Controlled, Tolerating Diet - Review of Systems General: Reports: Weakness. Denies: Fever, Chills Pulmonary: Reports: Shortness of Breath, Cough, Wheezing. Denies: Pleuritic Chest Pain, Sputum, Hemoptysis Cardiovascular: Reports: Dyspnea on Exertion, Edema. Denies: Chest Pain, Palpitations, Orthopnea, PND, Lightheadedness Gastrointestinal: Reports: No Symptoms - Patient Data Vitals - Most Recent: Last Vital Signs Temp 97.5 F 03/31/18 08:00 Pulse 78 03/31/18 08:37 Resp 20 03/31/18 08:00 BP 128/59 L 03/31/18 08:37 Pulse Ox 93 L 03/31/18 08:00 Weight - Most Recent: 198 lb 10.184 oz I&O - Last 24 Hours: Intake & Output 03/30/18 03/31/18 03/31/18 22:59 06:59 14:59 Intake Total 2550 2624 Output Total 600 400 Balance 1950 2224 Lab Results Last 24 Hours: Laboratory Results - last 24 hr 03/30/18 03/30/18 03/30/18 Range/Units 09:35 10:01 10:01 WBC 24.0 H (4.5-11.0) K/uL RBC 3.37 L (4.30-5.90) M/uL Hgb 11.6 L D (12.0-15.0) g/dL Hct 35.0 L (40.0-54.0) % MCV 104 H (80-98) fL MCH 34 H (27-31) pg MCHC 33 (32-36) % Plt Count 301 (150-400) K/uL Neut % (Auto) 84 H (36-66) % Lymph % (Auto) 7 L (24-44) % [place] % (Auto) 9 H (2-6) % Eos % (Auto) 0 L (2-4) % Baso % (Auto) 0 (0-1) % Add Manual Diff Neutrophils % (Manual) (36-66) % Lymphocytes % (Manual) (24-44) % Monocytes % (Manual) (2-6) % PT 11.1 11.3 (9.5-12.0) sec INR 1.01 1.03 (0.80-1.20) Puncture Site ABG pH (7.350-7.450) ABG pCO2 (35.0-42.0) mmHg ABG pO2 (75.0-100.0) mmHg ABG HCO3 (22.0-26.0) mmol/L ABG Total CO2 (23.0-27.0) mmol/L ABG O2 Saturation (95.0-98.0) % ABG O2 Content (15.0-23.0) %vol ABG Base Excess mm/L ABG Hemoglobin (13.5-18.0) g/dL ABG Oxyhemoglobin % ABG Carboxyhemoglobin (0.0-1.6) % ABG Methemoglobin % Froylan Test O2 Delivery Device Oxygen Flow Rate L Sodium (140-148) mmol/L Potassium (3.6-5.2) mmol/L Chloride (100-108) mmol/L Carbon Dioxide (21-32) mmol/L Anion Gap (5.0-14.0) mmol/L BUN (7-18) mg/dL Creatinine (0.8-1.3) mg/dL Est Cr Clr Drug Dosing mL/min Estimated GFR (MDRD) (>60) Glucose (74-106) mg/dL Lactic Acid (0.4-2.0) mmol/L Calcium (8.5-10.1) mg/dL Total Bilirubin (0.2-1.0) mg/dL AST (15-37) U/L ALT (12-78) U/L Alkaline Phosphatase (46-116) U/L Total Protein (6.4-8.2) g/dL Albumin (3.4-5.0) g/dL Globulin (2.3-3.5) g/dL Albumin/Globulin Ratio (1.2-2.2) Urine Color Urine Appearance Urine pH (4.5-8.0) Ur Specific [place] (1.008-1.030) Urine Protein (NEGATIVE) mg/dL Urine Glucose (UA) (NEGATIVE) mg/dL Urine Ketones (NEGATIVE) mg/dL Urine Occult Blood (NEGATIVE) Urine Nitrite (NEGAITVE) Urine Bilirubin (NEGATIVE) Urine Urobilinogen (NORMAL) mg/dL Ur Leukocyte Esterase (NEGATIVE) Urine RBC (0-5) Urine WBC (0-5) Ur Epithelial Cells Amorphous Sediment Urine Bacteria Urine Mucus 03/30/18 03/30/18 03/30/18 Range/Units 10:01 10:01 13:15 WBC (4.5-11.0) K/uL RBC (4.30-5.90) M/uL Hgb (12.0-15.0) g/dL Hct (40.0-54.0) % MCV (80-98) fL MCH (27-31) pg MCHC (32-36) % Plt Count (150-400) K/uL Neut % (Auto) (36-66) % Lymph % (Auto) (24-44) % [place] % (Auto) (2-6) % Eos % (Auto) (2-4) % Baso % (Auto) (0-1) % Add Manual Diff Neutrophils % (Manual) (36-66) % Lymphocytes % (Manual) (24-44) % Monocytes % (Manual) (2-6) % PT (9.5-12.0) sec INR (0.80-1.20) Puncture Site Rt radial ABG pH 7.497 H (7.350-7.450) ABG pCO2 29.5 L (35.0-42.0) mmHg ABG pO2 64.7 L (75.0-100.0) mmHg ABG HCO3 22.6 (22.0-26.0) mmol/L ABG Total CO2 20.3 L (23.0-27.0) mmol/L ABG O2 Saturation 92.9 L (95.0-98.0) % ABG O2 Content 14.5 L (15.0-23.0) %vol ABG Base Excess 0.5 mm/L ABG Hemoglobin 11.3 L (13.5-18.0) g/dL ABG Oxyhemoglobin 90.9 % ABG Carboxyhemoglobin 1.5 (0.0-1.6) % ABG Methemoglobin 0.7 % Froylan Test Pass O2 Delivery Device Bipap Oxygen Flow Rate L Sodium 137 L (140-148) mmol/L Potassium 3.7 (3.6-5.2) mmol/L Chloride 103 (100-108) mmol/L Carbon Dioxide 25 (21-32) mmol/L Anion Gap 12.7 (5.0-14.0) mmol/L BUN 17 (7-18) mg/dL Creatinine 1.1 (0.8-1.3) mg/dL Est Cr Clr Drug Dosing 47.93 mL/min Estimated GFR (MDRD) > 60 (>60) Glucose 94 (74-106) mg/dL Lactic Acid 2.2 H (0.4-2.0) mmol/L Calcium 8.3 L (8.5-10.1) mg/dL Total Bilirubin 0.8 (0.2-1.0) mg/dL AST 19 (15-37) U/L ALT 19 (12-78) U/L Alkaline Phosphatase 117 H (46-116) U/L Total Protein 6.2 L (6.4-8.2) g/dL Albumin 2.5 L (3.4-5.0) g/dL Globulin 3.7 H (2.3-3.5) g/dL Albumin/Globulin Ratio 0.7 L (1.2-2.2) Urine Color Urine Appearance Urine pH (4.5-8.0) Ur Specific [place] (1.008-1.030) Urine Protein (NEGATIVE) mg/dL Urine Glucose (UA) (NEGATIVE) mg/dL Urine Ketones (NEGATIVE) mg/dL Urine Occult Blood (NEGATIVE) Urine Nitrite (NEGAITVE) Urine Bilirubin (NEGATIVE) Urine Urobilinogen (NORMAL) mg/dL Ur Leukocyte Esterase (NEGATIVE) Urine RBC (0-5) Urine WBC (0-5) Ur Epithelial Cells Amorphous Sediment Urine Bacteria Urine Mucus 03/30/18 03/31/18 03/31/18 Range/Units 13:25 04:41 04:41 WBC 25.0 H (4.5-11.0) K/uL RBC 2.98 L (4.30-5.90) M/uL Hgb 10.2 L (12.0-15.0) g/dL Hct 31.2 L (40.0-54.0) % MCV 105 H (80-98) fL MCH 34 H (27-31) pg MCHC 33 (32-36) % Plt Count 257 (150-400) K/uL Neut % (Auto) (36-66) % Lymph % (Auto) (24-44) % [place] % (Auto) (2-6) % Eos % (Auto) (2-4) % Baso % (Auto) (0-1) % Add Manual Diff Yes Neutrophils % (Manual) 79 H (36-66) % Lymphocytes % (Manual) 13 L (24-44) % Monocytes % (Manual) 8 H (2-6) % PT 12.4 H (9.5-12.0) sec INR 1.14 (0.80-1.20) Puncture Site ABG pH (7.350-7.450) ABG pCO2 (35.0-42.0) mmHg ABG pO2 (75.0-100.0) mmHg ABG HCO3 (22.0-26.0) mmol/L ABG Total CO2 (23.0-27.0) mmol/L ABG O2 Saturation (95.0-98.0) % ABG O2 Content (15.0-23.0) %vol ABG Base Excess mm/L ABG Hemoglobin (13.5-18.0) g/dL ABG Oxyhemoglobin % ABG Carboxyhemoglobin (0.0-1.6) % ABG Methemoglobin % Froylan Test O2 Delivery Device Oxygen Flow Rate L Sodium (140-148) mmol/L Potassium (3.6-5.2) mmol/L Chloride (100-108) mmol/L Carbon Dioxide (21-32) mmol/L Anion Gap (5.0-14.0) mmol/L BUN (7-18) mg/dL Creatinine (0.8-1.3) mg/dL Est Cr Clr Drug Dosing mL/min Estimated GFR (MDRD) (>60) Glucose (74-106) mg/dL Lactic Acid (0.4-2.0) mmol/L Calcium (8.5-10.1) mg/dL Total Bilirubin (0.2-1.0) mg/dL AST (15-37) U/L ALT (12-78) U/L Alkaline Phosphatase (46-116) U/L Total Protein (6.4-8.2) g/dL Albumin (3.4-5.0) g/dL Globulin (2.3-3.5) g/dL Albumin/Globulin Ratio (1.2-2.2) Urine Color Yellow Urine Appearance Clear Urine pH 5.0 (4.5-8.0) Ur Specific [place] 1.010 (1.008-1.030) Urine Protein Negative (NEGATIVE) mg/dL Urine Glucose (UA) Normal (NEGATIVE) mg/dL Urine Ketones Negative (NEGATIVE) mg/dL Urine Occult Blood Large (NEGATIVE) Urine Nitrite Negative (NEGAITVE) Urine Bilirubin Negative (NEGATIVE) Urine Urobilinogen Normal (NORMAL) mg/dL Ur Leukocyte Esterase Negative (NEGATIVE) Urine RBC 0-5 (0-5) Urine WBC 0-5 (0-5) Ur Epithelial Cells Rare Amorphous Sediment Not seen Urine Bacteria Not seen Urine Mucus Not seen 03/31/18 Range/Units 04:41 WBC (4.5-11.0) K/uL RBC (4.30-5.90) M/uL Hgb (12.0-15.0) g/dL Hct (40.0-54.0) % MCV (80-98) fL MCH (27-31) pg MCHC (32-36) % Plt Count (150-400) K/uL Neut % (Auto) (36-66) % Lymph % (Auto) (24-44) % [place] % (Auto) (2-6) % Eos % (Auto) (2-4) % Baso % (Auto) (0-1) % Add Manual Diff Neutrophils % (Manual) (36-66) % Lymphocytes % (Manual) (24-44) % Monocytes % (Manual) (2-6) % PT (9.5-12.0) sec INR (0.80-1.20) Puncture Site ABG pH (7.350-7.450) ABG pCO2 (35.0-42.0) mmHg ABG pO2 (75.0-100.0) mmHg ABG HCO3 (22.0-26.0) mmol/L ABG Total CO2 (23.0-27.0) mmol/L ABG O2 Saturation (95.0-98.0) % ABG O2 Content (15.0-23.0) %vol ABG Base Excess mm/L ABG Hemoglobin (13.5-18.0) g/dL ABG Oxyhemoglobin % ABG Carboxyhemoglobin (0.0-1.6) % ABG Methemoglobin % Froylan Test O2 Delivery Device Oxygen Flow Rate L Sodium 136 L (140-148) mmol/L Potassium 3.5 L (3.6-5.2) mmol/L Chloride 103 (100-108) mmol/L Carbon Dioxide 26 (21-32) mmol/L Anion Gap 10.5 (5.0-14.0) mmol/L BUN 19 H (7-18) mg/dL Creatinine 1.3 (0.8-1.3) mg/dL Est Cr Clr Drug Dosing TNP mL/min Estimated GFR (MDRD) 52 L (>60) Glucose 125 H (74-106) mg/dL Lactic Acid (0.4-2.0) mmol/L Calcium 7.5 L (8.5-10.1) mg/dL Total Bilirubin 1.0 (0.2-1.0) mg/dL AST 17 (15-37) U/L ALT 16 (12-78) U/L Alkaline Phosphatase 81 (46-116) U/L Total Protein 4.9 L (6.4-8.2) g/dL Albumin 1.7 L (3.4-5.0) g/dL Globulin 3.2 (2.3-3.5) g/dL Albumin/Globulin Ratio 0.5 L (1.2-2.2) Urine Color Urine Appearance Urine pH (4.5-8.0) Ur Specific [place] (1.008-1.030) Urine Protein (NEGATIVE) mg/dL Urine Glucose (UA) (NEGATIVE) mg/dL Urine Ketones (NEGATIVE) mg/dL Urine Occult Blood (NEGATIVE) Urine Nitrite (NEGAITVE) Urine Bilirubin (NEGATIVE) Urine Urobilinogen (NORMAL) mg/dL Ur Leukocyte Esterase (NEGATIVE) Urine RBC (0-5) Urine WBC (0-5) Ur Epithelial Cells Amorphous Sediment Urine Bacteria Urine Mucus Robert Results Last 24 Hours: Microbiology 03/30/18 09:55 Aerobic Blood Culture - Preliminary Blood - Venous - Iv Start 03/30/18 13:40 Urine Culture - Preliminary Urine, Catheterized NO GROWTH AFTER 1 DAY Med Orders - Current: Current Medications Acetaminophen (Tylenol) 650 mg PO Q4H PRN PRN Reason: Pain (Mild 1-3)/fever Last Admin: 03/31/18 06:31 Dose: 650 mg Albuterol (Proventil Neb Soln) 2.5 mg NEB Q4H PRN PRN Reason: Shortness Of Breath/wheezing Last Admin: 03/30/18 19:48 Dose: 2.5 mg Albuterol/Ipratropium (Duoneb 3.0-0.5 Mg/3 Ml) 3 ml INH ONETIME COUNTS INCLUDE 234 BEDS AT THE [facility] Allopurinol (Zyloprim) 300 mg PO DAILY INDRA Last Admin: 03/31/18 08:37 Dose: 300 mg Aspirin (Halfprin) 81 mg PO DAILY INDRA Last Admin: 03/31/18 08:36 Dose: 81 mg Doxazosin Mesylate (Cardura) 8 mg PO DAILY COUNTS INCLUDE 234 BEDS AT THE [facility] Last Admin: 03/31/18 08:36 Dose: 8 mg Enoxaparin Sodium (Lovenox) 40 mg SUBCUT Q24H COUNTS INCLUDE 234 BEDS AT THE [facility] Last Admin: 03/30/18 16:00 Dose: 40 mg Hydrochlorothiazide (Hydrochlorothiazide) 12.5 mg PO DAILY COUNTS INCLUDE 234 BEDS AT THE [facility] Last Admin: 03/31/18 08:37 Dose: 12.5 mg Piperacillin/Tazobactam/ (Dextrose 3.375 gm/ Premix) 50 mls @ 100 mls/hr IV Q6H INDRA Last Admin: 03/31/18 03:55 Dose: 100 mls/hr Aztreonam/Dextrose 1 gm/ (Premix) 50 mls @ 100 mls/hr IV Q8HR INDRA Last Admin: 03/31/18 05:54 Dose: 100 mls/hr Vancomycin HCl 1.2 gm/ Sodium (Chloride) 250 mls @ 167 mls/hr IV Q12H INDRA Last Admin: 03/30/18 23:36 Dose: 167 mls/hr Norepinephrine Bitartrate 4 mg (/ Dextrose/Water) 250 mls @ 15 mls/hr IV TITRATE INDRA; Protocol Last Admin: 03/31/18 05:08 Dose: 6 mcg/min, 22.5 mls/hr Lactated Ringer's (Ringers, Lactated) 1,000 mls @ 25 mls/hr IV ASDIRECTED COUNTS INCLUDE 234 BEDS AT THE [facility] Lactobacillus Rhamnosus (Culturelle) 2 cap PO BID COUNTS INCLUDE 234 BEDS AT THE [facility] Last Admin: 03/31/18 08:36 Dose: 2 cap Levothyroxine Sodium (Levothyroxine) 75 mcg PO DAILY@0730 COUNTS INCLUDE 234 BEDS AT THE [facility] Last Admin: 03/31/18 08:36 Dose: 75 mcg Lisinopril (Prinivil) 20 mg PO DAILY COUNTS INCLUDE 234 BEDS AT THE [facility] Last Admin: 03/31/18 08:37 Dose: 20 mg Magnesium Hydroxide (Milk Of Magnesia) 30 ml PO Q12H PRN PRN Reason: Constipation Magnesium Oxide (Magnesium Oxide) 400 mg PO BID COUNTS INCLUDE 234 BEDS AT THE [facility] Last Admin: 03/31/18 08:37 Dose: 400 mg Metoprolol Succinate (Toprol Xl) 25 mg PO DAILY COUNTS INCLUDE 234 BEDS AT THE [facility] Last Admin: 03/31/18 08:37 Dose: 25 mg Ondansetron HCl (Zofran) 4 mg IV Q4H PRN PRN Reason: Nausea/Vomiting Oxycodone HCl (Oxycodone) 5 mg PO Q4H PRN PRN Reason: Pain (moderate 4-6) Pantoprazole Sodium (Protonix Iv) 40 mg IVPUSH Q24H COUNTS INCLUDE 234 BEDS AT THE [facility] Last Admin: 03/30/18 14:11 Dose: 40 mg Polyethylene Glycol (Miralax) 17 gm PO DAILY PRN PRN Reason: Constipation Senna/Docusate Sodium (Senna Plus) 1 tab PO BID PRN PRN Reason: Constipation Simvastatin (Zocor) 20 mg PO DAILY COUNTS INCLUDE 234 BEDS AT THE [facility] Last Admin: 03/31/18 08:37 Dose: 20 mg Sodium Chloride (Saline Flush) 10 ml FLUSH ASDIRECTED PRN PRN Reason: Keep Vein Open Discontinued Medications Albuterol/Ipratropium (Duoneb 3.0-0.5 Mg/3 Ml) 3 ml NEB ONETIME ONE Stop: 03/30/18 12:16 Last Admin: 03/30/18 12:31 Dose: 3 ml Furosemide (Lasix) 40 mg IVPUSH ONETIME ONE Stop: 03/30/18 12:16 Last Admin: 03/30/18 12:27 Dose: 40 mg Lactated Ringer's (Ringers, Lactated) 1,000 mls @ 999 mls/hr IV ASDIRECTED COUNTS INCLUDE 234 BEDS AT THE [facility] Last Admin: 03/30/18 10:18 Dose: 999 mls/hr Piperacillin/Tazobactam/ (Dextrose 4.5 gm/ Premix) 100 mls @ 200 mls/hr IV Q6H ONE Stop: 03/30/18 10:29 Last Admin: 03/30/18 10:18 Dose: 200 mls/hr Vancomycin HCl 1.5 gm/ Sodium (Chloride) 250 mls @ 150 mls/hr IV ONETIME ONE Stop: 03/30/18 13:54 Last Admin: 03/30/18 12:20 Dose: 150 mls/hr Lactated Ringer's (Ringers, Lactated) 1,000 mls @ 999 mls/hr IV BOLUS ONE Stop: 03/30/18 16:03 Last Admin: 03/30/18 15:09 Dose: 999 mls/hr Lactated Ringer's (Ringers, Lactated) 1,000 mls @ 500 mls/hr IV ASDIRECTED COUNTS INCLUDE 234 BEDS AT THE [facility] Stop: 03/30/18 17:59 Last Admin: 03/30/18 16:11 Dose: 500 mls/hr Lactated Ringer's (Ringers, Lactated) 1,000 mls @ 500 mls/hr IV ASDIRECTED COUNTS INCLUDE 234 BEDS AT THE [facility] Stop: 03/30/18 20:29 Last Admin: 03/30/18 18:45 Dose: 500 mls/hr Lactated Ringer's (Ringers, Lactated) 1,000 mls @ 100 mls/hr IV ASDIRECTED COUNTS INCLUDE 234 BEDS AT THE [facility] Last Admin: 03/30/18 20:30 Dose: 100 mls/hr Dextrose/Water (Dextrose 5% In Water) Confirm Administered Dose 250 mls @ as directed .ROUTE .STK-MED ONE Stop: 03/30/18 18:40 Last Admin: 03/30/18 19:03 Dose: Not Given Norepinephrine Bitartrate (Levophed) Confirm Administered Dose 4 mg .ROUTE .STK- MED ONE Stop: 03/30/18 18:38 Last Admin: 03/30/18 19:03 Dose: Not Given Potassium Chloride (Klor-Con M20) 40 meq PO ONETIME ONE Stop: 03/31/18 08:31 Last Admin: 03/31/18 08:39 Dose: 40 meq Vancomycin HCl (Vancomycin) 1 gm IV .PHARMACY TO DOSE COUNTS INCLUDE 234 BEDS AT THE [facility] Stop: 03/30/18 14:00 Warfarin Sodium (Coumadin) 2.5 mg PO DAILY@1300 INDRA Last Admin: 03/30/18 14:13 Dose: 2.5 mg - Exam Quality Assessment: Supplemental Oxygen, Urine Catheter, DVT Prophylaxis General: Alert, Oriented, Cooperative, Mild Distress Lungs: Normal Respiratory Effort, Wheezing. No: Crackles, Rales, Rhonchi Cardiovascular: Regular Rate, Regular Rhythm, No Murmurs GI/Abdominal Exam: Soft, Non-Tender, No Organomegaly, No Distention Extremities: Non-Tender, Pedal Edema Skin: Warm, Dry - Problem List Review Problem List Initiated/Reviewed/Updated: Yes - My Orders Last 24 Hours: My Active Orders 03/30/18 12:39 Resuscitation Status Routine 03/30/18 13:03 Patient Status [ADT] Routine Ambulate [RC] QID Cardiac Monitoring [RC] Q6H Height and Weight [RC] DAILY Intake and Output [RC] QSHIFT Notify Provider Vital Signs [RC] ASDIRECTED Oxygen Therapy [RC] Q12H Pulse Oximetry [RC] CONTINUOUS RT Aerosol Therapy [RC] ASDIRECTED Up With Assistance [RC] ASDIRECTED Up to Chair [RC] QID Vital Signs [RC] Q1H Acetaminophen [Tylenol] 650 mg PO Q4H PRN Albuterol [Proventil Neb Soln] 2.5 mg NEB Q4H PRN Albuterol/Ipratropium [DuoNeb 3.0-0.5 MG/3 ML] 3 ml INH ONETIME Docusate Sodium/Sennosides [Senna Plus] 1 tab PO BID PRN Lactobacillus Rhamnosus GG [Culturelle] 2 cap PO BID Magnesium Hydroxide [Milk of Magnesia] 30 ml PO Q12H PRN Ondansetron [Zofran] 4 mg IV Q4H PRN Polyethylene Glycol 3350 [MiraLAX] 17 gm PO DAILY PRN Sodium Chloride 0.9% [Saline Flush] 10 ml FLUSH ASDIRECTED PRN oxyCODONE 5 mg PO Q4H PRN Saline Lock Insert [OM.PC] Routine Sequential Compression Device [OM.PC] Per Unit Routine VTE Pharmacological Contraindications [AST] Per Unit Routine 03/30/18 14:00 Aztreonam/Dextrose-Water [Azactam in Dextrose,Iso-Osmotic 1 GM/50 ML] 1 gm Premix Bag 1 bag IV Q8HR Pantoprazole [ProTONIX IV] 40 mg IVPUSH Q24H 03/30/18 15:15 Wound Care [RC] Q12H 03/30/18 16:00 Enoxaparin [Lovenox] 40 mg SUBCUT Q24H Piperacillin/Tazobactam/Dext [Zosyn in Dextrose Iso-Osmotic 3.375 GM] 3.375 gm Premix Bag 1 bag IV Q6H 03/30/18 18:23 Pressure Reduction Mattress [OM.PC] Routine 03/30/18 18:30 Norepinephrine [Levophed] 4 mg Dextrose 5% in Water 246 ml IV TITRATE 03/30/18 21:00 Magnesium Oxide 400 mg PO BID 03/30/18 Lunch Regular Diet [DIET] 03/31/18 07:30 Levothyroxine 75 mcg PO DAILY@0730 03/31/18 09:00 Allopurinol [Zyloprim] 300 mg PO DAILY Aspirin [Halfprin] 81 mg PO DAILY Doxazosin [Cardura] 8 mg PO DAILY Lactated Ringers [Ringers, Lactated] 1,000 ml IV ASDIRECTED Lisinopril [Prinivil] 20 mg PO DAILY Metoprolol Succinate [Toprol XL] 25 mg PO DAILY Simvastatin [Zocor] 20 mg PO DAILY hydroCHLOROthiazide 12.5 mg PO DAILY 04/01/18 05:00 BASIC METABOLIC PANEL,BMP [CHEM] Timed CBC WITH AUTO DIFF [HEME] Timed - Plan Plan:: ASSESSMENT AND PLAN RIGHT LUNG PNEUMONIA WITH SEPSIS-developed significant hypotension after admission requiring vigorous IV fluid replacement and use of IV norepinephrine, stable now over the past several hours. -Blood cultures pending, one of 4 bottles growing gram-positive cocci -Continue IV norepinephrine, attempt to taper off today -Decrease IV rate to 25 mL/h -Because of recent antibiotic therapy will proceed with broad-spectrum IV antibiotics; vancomycin, Zosyn, and Azactam, pending culture results ACUTE HYPOXIC RESPIRATORY FAILURE-stable now off of noninvasive positive pressure ventilation -Supplemental oxygen as needed -Nebulized albuterol and duo nebs PERIRECTAL ABSCESS-status post surgical debridement and ongoing antibiotic therapy -Continue current wound cares -Consult Dr. 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 At the time of this admission I do not reasonably expected evaluation and management of this problem will require more than a 96 hour hospital stay. DISPOSITION-anticipate discharge to home after the hospital stay. PRIMARY CARE PROVIDER-Dr. Jad Butterfield
[2018-03-31] MEDS: Vancomycin 1.2 GM in Sodium Chloride 0.9% 250 ML IV SCH ×2 (11:11→22:49)
[2018-03-31] MEDS: Pantoprazole 40 MG Vial IVPUSH SCH (14:37)
[2018-03-31] MEDS: Enoxaparin 40 MG/0.4 ML Syringe SUBCUT SCH (15:43)
[2018-03-31] MEDS: Lactated Ringers 1,000 ML IV SCH (18:02)
[2018-04-01] MEDS: Acetaminophen 325 MG Tab PO PRN ×5 (02:38→20:59)
[2018-04-01] MEDS: Piperacillin/Tazobactam/Dext 3.375 GM in Premix Bag 1 BAG IV SCH ×4 (03:59→21:35)
[2018-04-01] MEDS: Lactated Ringers 1,000 ML IV SCH (04:48)
[2018-04-01] MEDS: Aztreonam/Dextrose-Water 1 GM in Premix Bag 1 BAG IV SCH (05:39)
[2018-04-01] MEDS: Levothyroxine 25 MCG Tab PO SCH (07:54)
--- NOTE | 2018-04-01 09:34 | PCM.PN ---
- General Info Date of Service: 04/01/18 Subjective Update: Mr. Florez has done well over the past 24 hours, white blood cell count is significantly improved and he has remained afebrile. Blood pressure was trending low yesterday afternoon he did receive additional IV fluids, this morning does report some shortness of breath likely secondary to fluid overload. He is off of the IV norepinephrine, remains somewhat weak and appetite has not yet returned. Functional Status: Reports: Pain Controlled - Review of Systems General: Reports: Weakness. Denies: Fever, Chills Pulmonary: Reports: Shortness of Breath. Denies: Pleuritic Chest Pain, Cough, Sputum, Hemoptysis, Wheezing Cardiovascular: Reports: Dyspnea on Exertion, Edema. Denies: Chest Pain, Palpitations, Orthopnea, PND Gastrointestinal: Reports: No Symptoms - Patient Data Vitals - Most Recent: Last Vital Signs Temp 96.5 F 04/01/18 08:00 Pulse 78 03/31/18 08:37 Resp 16 04/01/18 08:00 BP 139/65 04/01/18 08:00 Pulse Ox 93 L 04/01/18 08:00 Weight - Most Recent: 198 lb 3.129 oz I&O - Last 24 Hours: Intake & Output 03/31/18 04/01/18 04/01/18 22:59 06:59 14:59 Intake Total 2140 1998 Output Total 500 1350 Balance 1640 649 Lab Results Last 24 Hours: Laboratory Results - last 24 hr 04/01/18 04/01/18 Range/Units 05:55 05:55 WBC 12.5 H (4.5-11.0) K/uL RBC 3.05 L (4.30-5.90) M/uL Hgb 10.4 L (12.0-15.0) g/dL Hct 31.7 L (40.0-54.0) % MCV 104 H (80-98) fL MCH 34 H (27-31) pg MCHC 33 (32-36) % Plt Count 226 (150-400) K/uL Neut % (Auto) 68 H (36-66) % Lymph % (Auto) 19 L (24-44) % Edwards % (Auto) 11 H (2-6) % Eos % (Auto) 2 (2-4) % Baso % (Auto) 0 (0-1) % Sodium 139 L (140-148) mmol/L Potassium 3.6 (3.6-5.2) mmol/L Chloride 104 (100-108) mmol/L Carbon Dioxide 27 (21-32) mmol/L Anion Gap 11.6 (5.0-14.0) mmol/L BUN 20 H (7-18) mg/dL Creatinine 1.1 (0.8-1.3) mg/dL Est Cr Clr Drug Dosing 47.93 mL/min Estimated GFR (MDRD) > 60 (>60) Glucose 87 (74-106) mg/dL Calcium 8.1 L (8.5-10.1) mg/dL Robert Results Last 24 Hours: Microbiology 03/30/18 10:05 Aerobic Blood Culture - Preliminary Blood - Arm, Right NO GROWTH AFTER 1 DAY Anaerobic Blood Culture - Preliminary NO GROWTH AFTER 1 DAY 03/30/18 09:55 Aerobic Blood Culture - Preliminary Blood - Venous - Iv Start Anaerobic Blood Culture - Preliminary 03/30/18 13:40 Urine Culture - Final Urine, Catheterized NO GROWTH AFTER 2 DAYS Med Orders - Current: Current Medications Acetaminophen (Tylenol) 650 mg PO Q4H PRN PRN Reason: Pain (Mild 1-3)/fever Last Admin: 04/01/18 08:10 Dose: 650 mg Albuterol (Proventil Neb Soln) 2.5 mg NEB Q4H PRN PRN Reason: Shortness Of Breath/wheezing Last Admin: 03/30/18 19:48 Dose: 2.5 mg Albuterol/Ipratropium (Duoneb 3.0-0.5 Mg/3 Ml) 3 ml INH ONETIME [facility] Allopurinol (Zyloprim) 300 mg PO DAILY [facility] Last Admin: 03/31/18 08:37 Dose: 300 mg Aspirin (Halfprin) 81 mg PO DAILY [facility] Last Admin: 03/31/18 08:36 Dose: 81 mg Enoxaparin Sodium (Lovenox) 40 mg SUBCUT Q24H [facility] Last Admin: 03/31/18 15:43 Dose: 40 mg Furosemide (Lasix) 20 mg IVPUSH NOW ONE Stop: 04/01/18 09:30 Hydrochlorothiazide (Hydrochlorothiazide) 12.5 mg PO DAILY [facility] Last Admin: 03/31/18 08:37 Dose: 12.5 mg Piperacillin/Tazobactam/ (Dextrose 3.375 gm/ Premix) 50 mls @ 100 mls/hr IV Q6H [facility] Last Admin: 04/01/18 03:59 Dose: 100 mls/hr Vancomycin HCl 1.2 gm/ Sodium (Chloride) 250 mls @ 167 mls/hr IV Q12H [facility] Last Admin: 03/31/18 22:49 Dose: 167 mls/hr Lactobacillus Rhamnosus (Culturelle) 2 cap PO BID [facility] Last Admin: 03/31/18 20:55 Dose: 2 cap Levothyroxine Sodium (Levothyroxine) 75 mcg PO DAILY@0730 [facility] Last Admin: 04/01/18 07:54 Dose: 75 mcg Lisinopril (Prinivil) 20 mg PO DAILY [facility] Last Admin: 03/31/18 08:37 Dose: 20 mg Magnesium Hydroxide (Milk Of Magnesia) 30 ml PO Q12H PRN PRN Reason: Constipation Magnesium Oxide (Magnesium Oxide) 400 mg PO BID [facility] Last Admin: 03/31/18 20:55 Dose: 400 mg Metoprolol Succinate (Toprol Xl) 25 mg PO DAILY [facility] Last Admin: 03/31/18 08:37 Dose: 25 mg Ondansetron HCl (Zofran) 4 mg IV Q4H PRN PRN Reason: Nausea/Vomiting Oxycodone HCl (Oxycodone) 5 mg PO Q4H PRN PRN Reason: Pain (moderate 4-6) Pantoprazole Sodium (Protonix Iv) 40 mg IVPUSH Q24H [facility] Last Admin: 03/31/18 14:37 Dose: 40 mg Polyethylene Glycol (Miralax) 17 gm PO DAILY PRN PRN Reason: Constipation Senna/Docusate Sodium (Senna Plus) 1 tab PO BID PRN PRN Reason: Constipation Simvastatin (Zocor) 20 mg PO DAILY [facility] Last Admin: 03/31/18 08:37 Dose: 20 mg Sodium Chloride (Saline Flush) 10 ml FLUSH ASDIRECTED PRN PRN Reason: Keep Vein Open Discontinued Medications Albuterol/Ipratropium (Duoneb 3.0-0.5 Mg/3 Ml) 3 ml NEB ONETIME ONE Stop: 03/30/18 12:16 Last Admin: 03/30/18 12:31 Dose: 3 ml Doxazosin Mesylate (Cardura) 8 mg PO DAILY [facility] Last Admin: 03/31/18 08:36 Dose: 8 mg Furosemide (Lasix) 40 mg IVPUSH ONETIME ONE Stop: 03/30/18 12:16 Last Admin: 03/30/18 12:27 Dose: 40 mg Lactated Ringer's (Ringers, Lactated) 1,000 mls @ 999 mls/hr IV ASDIRECTED [facility] Last Admin: 03/30/18 10:18 Dose: 999 mls/hr Piperacillin/Tazobactam/ (Dextrose 4.5 gm/ Premix) 100 mls @ 200 mls/hr IV Q6H ONE Stop: 03/30/18 10:29 Last Admin: 03/30/18 10:18 Dose: 200 mls/hr Vancomycin HCl 1.5 gm/ Sodium (Chloride) 250 mls @ 150 mls/hr IV ONETIME ONE Stop: 03/30/18 13:54 Last Admin: 03/30/18 12:20 Dose: 150 mls/hr Aztreonam/Dextrose 1 gm/ (Premix) 50 mls @ 100 mls/hr IV Q8HR [facility] Last Admin: 04/01/18 05:39 Dose: 100 mls/hr Lactated Ringer's (Ringers, Lactated) 1,000 mls @ 999 mls/hr IV BOLUS ONE Stop: 03/30/18 16:03 Last Admin: 03/30/18 15:09 Dose: 999 mls/hr Lactated Ringer's (Ringers, Lactated) 1,000 mls @ 500 mls/hr IV ASDIRECTED [facility] Stop: 03/30/18 17:59 Last Admin: 03/30/18 16:11 Dose: 500 mls/hr Lactated Ringer's (Ringers, Lactated) 1,000 mls @ 500 mls/hr IV ASDIRECTED [facility] Stop: 03/30/18 20:29 Last Admin: 03/30/18 18:45 Dose: 500 mls/hr Lactated Ringer's (Ringers, Lactated) 1,000 mls @ 100 mls/hr IV ASDIRECTED [facility] Last Admin: 03/30/18 20:30 Dose: 100 mls/hr Norepinephrine Bitartrate 4 mg (/ Dextrose/Water) 250 mls @ 15 mls/hr IV TITRATE [facility]; Protocol Last Titration: 04/01/18 03:56 Dose: 0 mcg/min, 0 mls/hr Dextrose/Water (Dextrose 5% In Water) Confirm Administered Dose 250 mls @ as directed .ROUTE .STK-MED ONE Stop: 03/30/18 18:40 Last Admin: 03/30/18 19:03 Dose: Not Given Lactated Ringer's (Ringers, Lactated) 1,000 mls @ 25 mls/hr IV ASDIRECTED [facility] Lactated Ringer's (Ringers, Lactated) 1,000 mls @ 500 mls/hr IV ASDIRECTED [facility] Stop: 03/31/18 18:00 Last Admin: 03/31/18 16:00 Dose: 500 mls/hr Lactated Ringer's (Ringers, Lactated) 1,000 mls @ 125 mls/hr IV ASDIRECTED [facility] Last Admin: 04/01/18 04:48 Dose: 125 mls/hr Norepinephrine Bitartrate (Levophed) Confirm Administered Dose 4 mg .ROUTE .STK- MED ONE Stop: 03/30/18 18:38 Last Admin: 03/30/18 19:03 Dose: Not Given Potassium Chloride (Klor-Con M20) 40 meq PO ONETIME ONE Stop: 03/31/18 08:31 Last Admin: 03/31/18 08:39 Dose: 40 meq Vancomycin HCl (Vancomycin) 1 gm IV .PHARMACY TO DOSE [facility] Stop: 03/30/18 14:00 Warfarin Sodium (Coumadin) 2.5 mg PO DAILY@1300 [facility] Last Admin: 03/30/18 14:13 Dose: 2.5 mg - Exam Quality Assessment: Supplemental Oxygen, Urine Catheter, DVT Prophylaxis General: Alert, Oriented, Cooperative, Mild Distress Lungs: Normal Respiratory Effort, Rales. No: Decreased Breath Sounds, Crackles , Wheezing Cardiovascular: Regular Rate, Regular Rhythm, No Murmurs GI/Abdominal Exam: Soft, Non-Tender, No Organomegaly, No Distention Extremities: Non-Tender, Pedal Edema Skin: Warm, Dry - Problem List Review Problem List Initiated/Reviewed/Updated: Yes - My Orders Last 24 Hours: My Active Orders 03/31/18 09:00 Allopurinol [Zyloprim] 300 mg PO DAILY Aspirin [Halfprin] 81 mg PO DAILY Lisinopril [Prinivil] 20 mg PO DAILY Metoprolol Succinate [Toprol XL] 25 mg PO DAILY Simvastatin [Zocor] 20 mg PO DAILY hydroCHLOROthiazide 12.5 mg PO DAILY 03/31/18 09:02 Consult to Physician [CONS] Routine 03/31/18 09:03 Notify Provider Consults [RC] ASDIRECTED 04/01/18 09:29 Furosemide [Lasix] 20 mg IVPUSH NOW ONE Convert IV to Saline Lock [OM.PC] Routine 04/01/18 10:45 VANCOMYCIN TROUGH [CHEM] Routine 04/02/18 05:00 BASIC METABOLIC PANEL,BMP [CHEM] Timed CBC WITH AUTO DIFF [HEME] Timed MAGNESIUM [CHEM] Timed - Plan Plan:: ASSESSMENT AND PLAN RIGHT LUNG PNEUMONIA WITH SEPSIS-now off of IV norepinephrine, white blood cell count significantly improved but still slightly elevated. Gram-positive cocci growing from blood cultures, final ID and sensitivities pending. -Saline lock IV -Because of recent antibiotic therapy will proceed with broad-spectrum IV antibiotics; vancomycin, and Zosyn -Discontinue IV Azactam ACUTE HYPOXIC RESPIRATORY FAILURE-increased shortness of breath this morning likely secondary to fluid overload -Furosemide 20 mg IV now -Supplemental oxygen as needed -Nebulized albuterol and duo nebs PERIRECTAL ABSCESS-status post surgical debridement and ongoing antibiotic therapy -Continue current wound cares -Consult Dr. 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 At the time of this admission I do not reasonably expected evaluation and management of this problem will require more than a 96 hour hospital stay. DISPOSITION-anticipate discharge to home after the hospital stay. PRIMARY CARE PROVIDER-Dr. Jad Butterfield
[2018-04-01] MEDS: Hydrochlorothiazide 12.5 MG Cap PO SCH (09:36)
[2018-04-01] MEDS: Lisinopril 20 MG Tab PO SCH (09:36)
[2018-04-01] MEDS: Metoprolol Succinate 25 MG Tab.ER PO SCH (09:37)
[2018-04-01] MEDS: Lactobacillus Rhamnosus GG (Probiotic) Cap PO SCH ×2 (09:41→20:59)
[2018-04-01] MEDS: Allopurinol 300 MG Tab PO SCH (09:42)
[2018-04-01] MEDS: Magnesium Oxide 400 MG Tab PO SCH ×2 (09:42→20:59)
[2018-04-01] MEDS: Aspirin 81 MG Tab.EC PO SCH (09:42)
[2018-04-01] MEDS: Simvastatin 20 MG Tab PO SCH (09:42)
[2018-04-01] MEDS ORDERED: Furosemide 20 MG/2 ML VIAL IV ONE (09:45)
[2018-04-01] MEDS: Vancomycin 1.2 GM in Sodium Chloride 0.9% 250 ML IV SCH ×2 (11:53→22:50)
[2018-04-01] MEDS ORDERED: Potassium Chloride 20 MEQ Tab.ER PO ONE ×2 (15:21→20:00)
[2018-04-01] MEDS: Enoxaparin 40 MG/0.4 ML Syringe SUBCUT SCH (15:40)
[2018-04-01] MEDS: Pantoprazole 40 MG Tab.CR PO SCH (15:41)
[2018-04-01] MEDS ORDERED: Furosemide 40 MG/4 ML VIAL IVPUSH ONE (20:00)
[2018-04-02] MEDS: Acetaminophen 325 MG Tab PO PRN ×2 (00:48→04:51)
[2018-04-02] MEDS: Piperacillin/Tazobactam/Dext 3.375 GM in Premix Bag 1 BAG IV SCH ×4 (04:14→21:10)
[2018-04-02] MEDS: Simvastatin 20 MG Tab PO SCH (08:11)
[2018-04-02] MEDS: Pantoprazole 40 MG Tab.CR PO SCH (08:11)
[2018-04-02] MEDS: Magnesium Oxide 400 MG Tab PO SCH ×2 (08:11→20:09)
[2018-04-02] MEDS: Aspirin 81 MG Tab.EC PO SCH (08:11)
[2018-04-02] MEDS: Levothyroxine 25 MCG Tab PO SCH (08:11)
[2018-04-02] MEDS: Lactobacillus Rhamnosus GG (Probiotic) Cap PO SCH ×2 (08:11→20:10)
[2018-04-02] MEDS: Allopurinol 300 MG Tab PO SCH (08:11)
--- NOTE | 2018-04-02 08:59 | PCM.PN ---
- General Info Date of Service: 04/02/18 Functional Status: Reports: Pain Controlled, Tolerating Diet - Review of Systems General: Denies: Fever Pulmonary: Reports: Shortness of Breath, Cough Cardiovascular: Reports: Edema Systems Review Comment:: There were no acute events overnight. BP has remained stable after norepinephrine was discontinued. Excellent diuresis yesterday and shortness of breath did improve but has not resolved. He has mild pain in the area of his open wound. He has not had any fevers. Bowels have been moving. He does continue to require supplemental oxygen. Blood cultures are growing staph epidermidis. - Patient Data Vitals - Most Recent: Last Vital Signs Temp 35.8 C 04/02/18 08:00 Pulse 78 03/31/18 08:37 Resp 20 04/02/18 08:00 BP 157/59 H 04/02/18 08:00 Pulse Ox 95 04/02/18 08:00 Weight - Most Recent: 89.9 kg I&O - Last 24 Hours: Intake & Output 04/01/18 04/02/18 04/02/18 22:59 06:59 14:59 Intake Total 1650 796 Output Total 1525 1825 Balance 125 -1029 Lab Results Last 24 Hours: Laboratory Results - last 24 hr 04/01/18 04/02/18 04/02/18 Range/Units 10:45 04:30 04:30 WBC 10.3 (4.5-11.0) K/uL RBC 3.04 L (4.30-5.90) M/uL Hgb 10.3 L (12.0-15.0) g/dL Hct 31.8 L (40.0-54.0) % MCV 105 H (80-98) fL MCH 34 H (27-31) pg MCHC 32 (32-36) % Plt Count 241 (150-400) K/uL Neut % (Auto) 62 (36-66) % Lymph % (Auto) 24 (24-44) % Ponce % (Auto) 13 H (2-6) % Eos % (Auto) 2 (2-4) % Baso % (Auto) 0 (0-1) % Sodium 139 L (140-148) mmol/L Potassium 3.7 (3.6-5.2) mmol/L Chloride 105 (100-108) mmol/L Carbon Dioxide 28 (21-32) mmol/L Anion Gap 9.7 (5.0-14.0) mmol/L BUN 16 (7-18) mg/dL Creatinine 1.1 (0.8-1.3) mg/dL Est Cr Clr Drug Dosing 47.93 mL/min Estimated GFR (MDRD) > 60 (>60) Glucose 84 (74-106) mg/dL Calcium 8.0 L (8.5-10.1) mg/dL Magnesium 1.8 (1.8-2.4) mg/dL Vancomycin Trough 16.5 (10.0-20.0) ug/mL Robert Results Last 24 Hours: Microbiology 03/30/18 10:05 Aerobic Blood Culture - Preliminary Blood - Arm, Right NO GROWTH AFTER 2 DAYS Anaerobic Blood Culture - Preliminary NO GROWTH AFTER 2 DAYS 03/30/18 09:55 Aerobic Blood Culture - Final Blood - Venous - Iv Start Staphylococcus Epidermidis Anaerobic Blood Culture - Final Staphylococcus Epidermidis 03/30/18 13:40 Urine Culture - Final Urine, Catheterized NO GROWTH AFTER 2 DAYS Med Orders - Current: Current Medications Acetaminophen (Tylenol) 650 mg PO Q4H [facility] Albuterol (Proventil Neb Soln) 2.5 mg NEB Q4H PRN PRN Reason: Shortness Of Breath/wheezing Last Admin: 03/30/18 19:48 Dose: 2.5 mg Albuterol/Ipratropium (Duoneb 3.0-0.5 Mg/3 Ml) 3 ml INH ONETIME [facility] Allopurinol (Zyloprim) 300 mg PO DAILY [facility] Last Admin: 04/02/18 08:11 Dose: 300 mg Aspirin (Halfprin) 81 mg PO DAILY [facility] Last Admin: 04/02/18 08:11 Dose: 81 mg Doxycycline Hyclate (Vibramycin) 100 mg PO BID [facility] Enoxaparin Sodium (Lovenox) 40 mg SUBCUT Q24H [facility] Last Admin: 04/01/18 15:40 Dose: 40 mg Furosemide (Lasix) 20 mg IVPUSH Q12H [facility] Hydrochlorothiazide (Hydrochlorothiazide) 12.5 mg PO DAILY [facility] Last Admin: 04/01/18 09:36 Dose: Not Given Piperacillin/Tazobactam/ (Dextrose 3.375 gm/ Premix) 50 mls @ 100 mls/hr IV Q6H [facility] Last Admin: 04/02/18 04:14 Dose: 100 mls/hr Lactobacillus Rhamnosus (Culturelle) 2 cap PO BID [facility] Last Admin: 04/02/18 08:11 Dose: 2 cap Levothyroxine Sodium (Levothyroxine) 75 mcg PO DAILY@0730 [facility] Last Admin: 04/02/18 08:11 Dose: 75 mcg Lisinopril (Prinivil) 20 mg PO DAILY [facility] Last Admin: 04/01/18 09:36 Dose: Not Given Magnesium Hydroxide (Milk Of Magnesia) 30 ml PO Q12H PRN PRN Reason: Constipation Magnesium Oxide (Magnesium Oxide) 400 mg PO BID [facility] Last Admin: 04/02/18 08:11 Dose: 400 mg Metoprolol Succinate (Toprol Xl) 25 mg PO DAILY [facility] Last Admin: 04/01/18 09:37 Dose: Not Given Ondansetron HCl (Zofran) 4 mg IV Q4H PRN PRN Reason: Nausea/Vomiting Oxycodone HCl (Oxycodone) 5 mg PO Q4H PRN PRN Reason: Pain (moderate 4-6) Pantoprazole Sodium (Protonix) 40 mg PO ACBREAKFAST [facility] Last Admin: 04/02/18 08:11 Dose: 40 mg Polyethylene Glycol (Miralax) 17 gm PO DAILY PRN PRN Reason: Constipation Potassium Chloride (Klor-Con M20) 40 meq PO ONETIME ONE Stop: 04/02/18 09:01 Senna/Docusate Sodium (Senna Plus) 1 tab PO BID PRN PRN Reason: Constipation Simvastatin (Zocor) 20 mg PO DAILY [facility] Last Admin: 04/02/18 08:11 Dose: 20 mg Sodium Chloride (Saline Flush) 10 ml FLUSH ASDIRECTED PRN PRN Reason: Keep Vein Open Discontinued Medications Acetaminophen (Tylenol) 650 mg PO Q4H PRN PRN Reason: Pain (Mild 1-3)/fever Last Admin: 04/02/18 04:51 Dose: 650 mg Albuterol/Ipratropium (Duoneb 3.0-0.5 Mg/3 Ml) 3 ml NEB ONETIME ONE Stop: 03/30/18 12:16 Last Admin: 03/30/18 12:31 Dose: 3 ml Doxazosin Mesylate (Cardura) 8 mg PO DAILY [facility] Last Admin: 03/31/18 08:36 Dose: 8 mg Furosemide (Lasix) 40 mg IVPUSH ONETIME ONE Stop: 03/30/18 12:16 Last Admin: 03/30/18 12:27 Dose: 40 mg Furosemide (Lasix) 20 mg IV ONETIME ONE Stop: 04/01/18 09:46 Last Admin: 04/01/18 09:42 Dose: 20 mg Furosemide (Lasix) 20 mg IVPUSH NOW ONE Stop: 04/01/18 20:01 Last Admin: 04/01/18 19:47 Dose: 20 mg Lactated Ringer's (Ringers, Lactated) 1,000 mls @ 999 [facility] Admin: 03/30/18 10:18 Dose: 999 mls/hr Piperacillin/Tazobactam/ (Dextrose 4.5 gm/ Premix) 100 mls @ 200 mls/hr IV Q6H ONE Stop: 03/30/18 10:29 Last Admin: 03/30/18 10:18 Dose: 200 mls/hr Vancomycin HCl 1.5 gm/ Sodium (Chloride) 250 mls @ 150 mls/hr IV ONETIME ONE Stop: 03/30/18 13:54 Last Admin: 03/30/18 12:20 Dose: 150 mls/hr Aztreonam/Dextrose 1 gm/ (Premix) 50 mls @ 100 mls/hr IV Q8HR [facility] Last Admin: 04/01/18 05:39 Dose: 100 mls/hr Vancomycin HCl 1.2 gm/ Sodium (Chloride) 250 mls @ 167 mls/hr IV Q12H [facility] Last Admin: 04/01/18 22:50 Dose: 167 mls/hr Lactated Ringer's (Ringers, Lactated) 1,000 mls @ 999 mls/hr IV BOLUS ONE Stop: 03/30/18 16:03 Last Admin: 03/30/18 15:09 Dose: 999 mls/hr Lactated Ringer's (Ringers, Lactated) 1,000 mls @ 500 mls/hr IV ASDIRECTED [facility] Stop: 03/30/18 17:59 Last Admin: 03/30/18 16:11 Dose: 500 mls/hr Lactated Ringer's (Ringers, Lactated) 1,000 mls @ 500 mls/hr IV ASDIRECTED [facility] Stop: 03/30/18 20:29 Last Admin: 03/30/18 18:45 Dose: 500 mls/hr Lactated Ringer's (Ringers, Lactated) 1,000 mls @ 100 mls/hr IV ASDIRECTED [facility] Last Admin: 03/30/18 20:30 Dose: 100 mls/hr Norepinephrine Bitartrate 4 mg (/ Dextrose/Water) 250 mls @ 15 mls/hr IV TITRATE [facility]; Protocol Last Titration: 04/01/18 03:56 Dose: 0 mcg/min, 0 mls/hr Dextrose/Water (Dextrose 5% In Water) Confirm Administered Dose 250 mls @ as directed .ROUTE .STK-MED ONE Stop: 03/30/18 18:40 Last Admin: 03/30/18 19:03 Dose: Not Given Lactated Ringer's (Ringers, Lactated) 1,000 mls @ 25 mls/hr IV ASDIRECTED [facility] Lactated Ringer's (Ringers, Lactated) 1,000 mls @ 500 mls/hr IV ASDIRECTED [facility] Stop: 03/31/18 18:00 Last Admin: 03/31/18 16:00 Dose: 500 mls/hr Lactated Ringer's (Ringers, Lactated) 1,000 mls @ 125 mls/hr IV ASDIRECTED [facility] Last Admin: 04/01/18 04:48 Dose: 125 mls/hr Norepinephrine Bitartrate (Levophed) Confirm Administered Dose 4 mg .ROUTE .STK- MED ONE Stop: 03/30/18 18:38 Last Admin: 03/30/18 19:03 Dose: Not Given Pantoprazole Sodium (Protonix Iv) 40 mg IVPUSH Q24H [facility] Last Admin: 03/31/18 14:37 Dose: 40 mg Potassium Chloride (Klor-Con M20) 40 meq PO ONETIME ONE Stop: 03/31/18 08:31 Last Admin: 03/31/18 08:39 Dose: 40 meq Potassium Chloride (Klor-Con M20) 40 meq PO ONETIME ONE Stop: 04/01/18 15:22 Last Admin: 04/01/18 15:25 Dose: 40 meq Potassium Chloride (Klor-Con M20) 40 meq PO ONETIME ONE Stop: 04/01/18 20:01 Last Admin: 04/01/18 19:47 Dose: 40 meq Vancomycin HCl (Vancomycin) 1 gm IV .PHARMACY TO DOSE [facility] Stop: 03/30/18 14:00 Warfarin Sodium (Coumadin) 2.5 mg PO DAILY@1300 [facility] Last Admin: 03/30/18 14:13 Dose: 2.5 mg - Exam Quality Assessment: Supplemental Oxygen General: Alert, Oriented, Cooperative, No Acute Distress Neck: Supple, JVD Lungs: Normal Respiratory Effort, Crackles (mild diffuse, more prominent in lower lung hoff) Cardiovascular: Regular Rate, Regular Rhythm, Murmurs GI/Abdominal Exam: Normal Bowel Sounds, Soft, No Distention Extremities: Pedal Edema (pitting edema to below the knee bilaterally ). No: Increased Warmth Skin: Warm, Dry Psy/Mental Status: Alert, Normal Affect - Problem List Review Problem List Initiated/Reviewed/Updated: Yes - My Orders Last 24 Hours: My Active Orders 04/02/18 08:57 Transfer Patient (Change bed) [ADT] Routine 04/02/18 09:00 Acetaminophen [Tylenol] 650 mg PO Q4H Doxycycline [Vibramycin] 100 mg PO BID Furosemide [Lasix] 20 mg IVPUSH Q12H Potassium Chloride [Klor-Con M20] 40 meq PO ONETIME ONE 04/03/18 05:00 BASIC METABOLIC PANEL,BMP [CHEM] Timed CBC W/O DIFF,HEMOGRAM [HEME] Timed (1) - Plan Plan:: ASSESSMENT AND PLAN Right lung pneumonia with septic shock - complicated by staph epidermidis bacteremia. now off of IV norepinephrine, white blood cell count continues to improve. Blood pressures are in the normal range today but he has not had any of his antihypertensives. He does continue to require supplemental oxygen but feels less short of breath today. -Saline lock IV -Continue Pip/Tazo today, plan to discontinue tomorrow if no new culture results are available -Discontinue vancomycin -Start doxycycline ACUTE HYPOXIC RESPIRATORY FAILURE - increased shortness of breath over the past 2 days, likely related to volume overload with volume resuscitation provided early in the hospital stay. He is feeling better with diuresis provided yesterday. -Furosemide 20 mg IV twice today -Supplemental oxygen as needed -Nebulized albuterol and duo nebs PERIRECTAL ABSCESS - status post surgical debridement and ongoing antibiotic therapy. -Continue current wound cares -pain control with scheduled APAP -Consult Dr. 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 Aris Ashley M.D.
[2018-04-02] MEDS ORDERED: Potassium Chloride 20 MEQ Tab.ER PO ONE (09:00)
[2018-04-02] MEDS: Doxycycline 100 MG Cap PO SCH ×2 (09:24→20:10)
[2018-04-02] MEDS: Acetaminophen 325 MG Tab PO SCH ×4 (09:24→21:09)
[2018-04-02] MEDS: Furosemide 20 MG/2 ML VIAL IVPUSH SCH ×2 (09:25→20:10)
[2018-04-02] MEDS: Enoxaparin 40 MG/0.4 ML Syringe SUBCUT SCH (15:32)
[2018-04-03] MEDS: Acetaminophen 325 MG Tab PO SCH ×6 (01:19→20:47)
[2018-04-03] MEDS: Piperacillin/Tazobactam/Dext 3.375 GM in Premix Bag 1 BAG IV SCH (04:34)
[2018-04-03] MEDS: Levothyroxine 25 MCG Tab PO SCH (07:21)
[2018-04-03] MEDS: Pantoprazole 40 MG Tab.CR PO SCH (07:21)
[2018-04-03] MEDS: Metoprolol Succinate 25 MG Tab.ER PO SCH (09:04)
[2018-04-03] MEDS: Lactobacillus Rhamnosus GG (Probiotic) Cap PO SCH ×2 (09:04→20:46)
[2018-04-03] MEDS: Hydrochlorothiazide 12.5 MG Cap PO SCH (09:04)
[2018-04-03] MEDS: Lisinopril 20 MG Tab PO SCH (09:04)
[2018-04-03] MEDS: Simvastatin 20 MG Tab PO SCH (09:05)
[2018-04-03] MEDS: Magnesium Oxide 400 MG Tab PO SCH ×2 (09:05→20:47)
[2018-04-03] MEDS: Doxycycline 100 MG Cap PO SCH ×2 (09:05→20:48)
[2018-04-03] MEDS: Allopurinol 300 MG Tab PO SCH (09:05)
[2018-04-03] MEDS: Aspirin 81 MG Tab.EC PO SCH (09:05)
[2018-04-03] MEDS: Potassium Chloride 20 MEQ Tab.ER PO SCH ×2 (10:06→20:47)
--- NOTE | 2018-04-03 10:51 | PCM.PN ---
- General Info Date of Service: 04/03/18 Functional Status: Reports: Pain Controlled, Tolerating Diet - Review of Systems General: Reports: Weakness Pulmonary: Reports: Shortness of Breath (mild) Cardiovascular: Reports: Edema Systems Review Comment:: There were no acute events overnight. The patient had an excellent diuresis again yesterday and his shortness of breath has improved further. He is off supplemental oxygen as of this morning. He does have some ongoing lower extremity edema. No complaints of abdominal pain or nausea. Pain from his surgical wound is stable and fairly well-controlled with his acetaminophen. - Patient Data Vitals - Most Recent: Last Vital Signs Temp 36.4 C 04/03/18 07:19 Pulse 70 04/03/18 09:04 Resp 18 04/03/18 07:19 BP 124/75 04/03/18 09:04 Pulse Ox 93 L 04/03/18 07:19 Weight - Most Recent: 89.9 kg I&O - Last 24 Hours: Intake & Output 04/02/18 04/03/18 04/03/18 22:59 06:59 14:59 Intake Total 750 50 480 Output Total 3000 2800 900 Balance -2250 -9320 -420 Lab Results Last 24 Hours: Laboratory Results - last 24 hr 04/03/18 04/03/18 Range/Units 04:30 04:30 WBC 10.3 (4.5-11.0) K/uL RBC 3.25 L (4.30-5.90) M/uL Hgb 10.9 L (12.0-15.0) g/dL Hct 34.0 L (40.0-54.0) % MCV 105 H (80-98) fL MCH 34 H (27-31) pg MCHC 32 (32-36) % Plt Count 264 (150-400) K/uL Sodium 139 L (140-148) mmol/L Potassium 3.1 L (3.6-5.2) mmol/L Chloride 103 (100-108) mmol/L Carbon Dioxide 30 (21-32) mmol/L Anion Gap 9.1 (5.0-14.0) mmol/L BUN 11 (7-18) mg/dL Creatinine 1.0 (0.8-1.3) mg/dL Est Cr Clr Drug Dosing 52.85 mL/min Estimated GFR (MDRD) > 60 (>60) Glucose 89 (74-106) mg/dL Calcium 8.1 L (8.5-10.1) mg/dL Robert Results Last 24 Hours: Microbiology 03/30/18 10:05 Aerobic Blood Culture - Preliminary Blood - Arm, Right NO GROWTH AFTER 3 DAYS Anaerobic Blood Culture - Preliminary NO GROWTH AFTER 3 DAYS 03/30/18 09:55 Aerobic Blood Culture - Final Blood - Venous - Iv Start Staphylococcus Epidermidis Anaerobic Blood Culture - Final Staphylococcus Epidermidis Med Orders - Current: Current Medications Acetaminophen (Tylenol) 650 mg PO Q4H [facility] Last Admin: 04/03/18 09:04 Dose: 650 mg Albuterol (Proventil Neb Soln) 2.5 mg NEB Q4H PRN PRN Reason: Shortness Of Breath/wheezing Last Admin: 03/30/18 19:48 Dose: 2.5 mg Albuterol/Ipratropium (Duoneb 3.0-0.5 Mg/3 Ml) 3 ml INH ONETIME [facility] Allopurinol (Zyloprim) 300 mg PO DAILY [facility] Last Admin: 04/03/18 09:05 Dose: 300 mg Aspirin (Halfprin) 81 mg PO DAILY [facility] Last Admin: 04/03/18 09:05 Dose: 81 mg Doxycycline Hyclate (Vibramycin) 100 mg PO BID [facility] Last Admin: 04/03/18 09:05 Dose: 100 mg Enoxaparin Sodium (Lovenox) 40 mg SUBCUT Q24H [facility] Last Admin: 04/02/18 15:32 Dose: 40 mg Hydrochlorothiazide (Hydrochlorothiazide) 12.5 mg PO DAILY [facility] Last Admin: 04/03/18 09:04 Dose: 12.5 mg Lactobacillus Rhamnosus (Culturelle) 2 cap PO BID [facility] Last Admin: 04/03/18 09:04 Dose: 2 cap Levothyroxine Sodium (Levothyroxine) 75 mcg PO DAILY@0730 [facility] Last Admin: 04/03/18 07:21 Dose: 75 mcg Lisinopril (Prinivil) 20 mg PO DAILY [facility] Last Admin: 04/03/18 09:04 Dose: 20 mg Magnesium Hydroxide (Milk Of Magnesia) 30 ml PO Q12H PRN PRN Reason: Constipation Magnesium Oxide (Magnesium Oxide) 400 mg PO BID [facility] Last Admin: 04/03/18 09:05 Dose: 400 mg Metoprolol Succinate (Toprol Xl) 25 mg PO DAILY [facility] Last Admin: 04/03/18 09:04 Dose: 25 mg Ondansetron HCl (Zofran) 4 mg IV Q4H PRN PRN Reason: Nausea/Vomiting Oxycodone HCl (Oxycodone) 5 mg PO Q4H PRN PRN Reason: Pain (moderate 4-6) Pantoprazole Sodium (Protonix) 40 mg PO ACBREAKFAST [facility] Last Admin: 04/03/18 07:21 Dose: 40 mg Polyethylene Glycol (Miralax) 17 gm PO DAILY PRN PRN Reason: Constipation Potassium Chloride (Klor-Con M20) 40 meq PO BID [facility] Stop: 04/03/18 21:01 Last Admin: 04/03/18 10:06 Dose: 40 meq Senna/Docusate Sodium (Senna Plus) 1 tab PO BID PRN PRN Reason: Constipation Simvastatin (Zocor) 20 mg PO DAILY [facility] Last Admin: 04/03/18 09:05 Dose: 20 mg Sodium Chloride (Saline Flush) 10 ml FLUSH ASDIRECTED PRN PRN Reason: Keep Vein Open Discontinued Medications Acetaminophen (Tylenol) 650 mg PO Q4H PRN PRN Reason: Pain (Mild 1-3)/fever Last Admin: 04/02/18 04:51 Dose: 650 mg Albuterol/Ipratropium (Duoneb 3.0-0.5 Mg/3 Ml) 3 ml NEB ONETIME ONE Stop: 03/30/18 12:16 Last Admin: 03/30/18 12:31 Dose: 3 ml Doxazosin Mesylate (Cardura) 8 mg PO DAILY [facility] Last Admin: 03/31/18 08:36 Dose: 8 mg Furosemide (Lasix) 40 mg IVPUSH ONETIME ONE Stop: 03/30/18 12:16 Last Admin: 03/30/18 12:27 Dose: 40 mg Furosemide (Lasix) 20 mg IV ONETIME ONE Stop: 04/01/18 09:46 Last Admin: 04/01/18 09:42 Dose: 20 mg Furosemide (Lasix) 20 mg IVPUSH NOW ONE Stop: 04/01/18 20:01 Last Admin: 04/01/18 19:47 Dose: 20 mg Furosemide (Lasix) 20 mg IVPUSH Q12H [facility] Last Admin: 04/02/18 20:10 Dose: 20 mg Lactated Ringer's (Ringers, Lactated) 1,000 mls @ 999 mls/hr IV ASDIRECTED [facility] Last Admin: 03/30/18 10:18 Dose: 999 mls/hr Piperacillin/Tazobactam/ (Dextrose 4.5 gm/ Premix) 100 mls @ 200 mls/hr IV Q6H ONE Stop: 03/30/18 10:29 Last Admin: 03/30/18 10:18 Dose: 200 mls/hr Vancomycin HCl 1.5 gm/ Sodium (Chloride) 250 mls @ 150 mls/hr IV ONETIME ONE Stop: 03/30/18 13:54 Last Admin: 03/30/18 12:20 Dose: 150 mls/hr Piperacillin/Tazobactam/ (Dextrose 3.375 gm/ Premix) 50 mls @ 100 mls/hr IV Q6H [facility] Last Admin: 04/03/18 04:34 Dose: 100 mls/hr Aztreonam/Dextrose 1 gm/ (Premix) 50 mls @ 100 mls/hr IV Q8HR [facility] Last Admin: 04/01/18 05:39 Dose: 100 mls/hr Vancomycin HCl 1.2 gm/ Sodium (Chloride) 250 mls @ 167 mls/hr IV Q12H [facility] Last Admin: 04/01/18 22:50 Dose: 167 mls/hr Lactated Ringer's (Ringers, Lactated) 1,000 mls @ 999 mls/hr IV BOLUS ONE Stop: 03/30/18 16:03 Last Admin: 03/30/18 15:09 Dose: 999 mls/hr Lactated Ringer's (Ringers, Lactated) 1,000 mls @ 500 mls/hr IV ASDIRECTED [facility] Stop: 03/30/18 17:59 Last Admin: 03/30/18 16:11 Dose: 500 mls/hr Lactated Ringer's (Ringers, Lactated) 1,000 mls @ 500 mls/hr IV ASDIRECTED [facility] Stop: 03/30/18 20:29 Last Admin: 03/30/18 18:45 Dose: 500 mls/hr Lactated Ringer's (Ringers, Lactated) 1,000 mls @ 100 mls/hr IV ASDIRECTED [facility] Last Admin: 03/30/18 20:30 Dose: 100 mls/hr Norepinephrine Bitartrate 4 mg (/ Dextrose/Water) 250 mls @ 15 mls/hr IV TITRATE [facility]; Protocol Last Titration: 04/01/18 03:56 Dose: 0 mcg/min, 0 mls/hr Dextrose/Water (Dextrose 5% In Water) Confirm Administered Dose 250 mls @ as directed .ROUTE .STK-MED ONE Stop: 03/30/18 18:40 Last Admin: 03/30/18 19:03 Dose: Not Given Lactated Ringer's (Ringers, Lactated) 1,000 mls @ 25 mls/hr IV ASDIRECTED [facility] Lactated Ringer's (Ringers, Lactated) 1,000 mls @ 500 mls/hr IV ASDIRECTED [facility] Stop: 03/31/18 18:00 Last Admin: 03/31/18 16:00 Dose: 500 mls/hr Lactated Ringer's (Ringers, Lactated) 1,000 mls @ 125 mls/hr IV ASDIRECTED [facility] Last Admin: 04/01/18 04:48 Dose: 125 mls/hr Norepinephrine Bitartrate (Levophed) Confirm Administered Dose 4 mg .ROUTE .STK- MED ONE Stop: 03/30/18 18:38 Last Admin: 03/30/18 19:03 Dose: Not Given Pantoprazole Sodium (Protonix Iv) 40 mg IVPUSH Q24H [facility] Last Admin: 03/31/18 14:37 Dose: 40 mg Potassium Chloride (Klor-Con M20) 40 meq PO ONETIME ONE Stop: 03/31/18 08:31 Last Admin: 03/31/18 08:39 Dose: 40 meq Potassium Chloride (Klor-Con M20) 40 meq PO ONETIME ONE Stop: 04/01/18 15:22 Last Admin: 04/01/18 15:25 Dose: 40 meq Potassium Chloride (Klor-Con M20) 40 meq PO ONETIME ONE Stop: 04/01/18 20:01 Last Admin: 04/01/18 19:47 Dose: 40 meq Potassium Chloride (Klor-Con M20) 40 meq PO ONETIME ONE Stop: 04/02/18 09:01 Last Admin: 04/02/18 09:24 Dose: 40 meq Vancomycin HCl (Vancomycin) 1 gm IV .PHARMACY TO DOSE INDRA Stop: 03/30/18 14:00 Warfarin Sodium (Coumadin) 2.5 mg PO DAILY@1300 [facility] Last Admin: 03/30/18 14:13 Dose: 2.5 mg - Exam Quality Assessment: No: Supplemental Oxygen General: Alert, Oriented, Cooperative, No Acute Distress Neck: Supple Lungs: Clear to Auscultation, Normal Respiratory Effort Cardiovascular: Regular Rate, Regular Rhythm GI/Abdominal Exam: Soft, No Distention Extremities: Pedal Edema Psy/Mental Status: Alert, Normal Affect - Problem List Review Problem List Initiated/Reviewed/Updated: Yes - My Orders Last 24 Hours: My Active Orders 04/03/18 09:00 Potassium Chloride [Klor-Con M20] 40 meq PO BID 04/04/18 05:00 BASIC METABOLIC PANEL,BMP [CHEM] Timed CBC W/O DIFF,HEMOGRAM [HEME] Timed (1) - Plan Plan:: ASSESSMENT AND PLAN Right lung pneumonia with septic shock - complicated by staph epidermidis bacteremia. Ongoing improvement and now off supplemental oxygen. Transitioning to one antibiotic rather than 2 today. Strength steadily improving. -Saline lock IV -Discontinue Pip/Tazo today -Continue doxycycline ACUTE HYPOXIC RESPIRATORY FAILURE - initially a contribution from pneumonia but persistent hypoxia likely related to volume overload with volume resuscitation provided early in the hospital stay. Excellent diuresis again yesterday and is now off supplemental oxygen. He does have some residual edema and mild crackles. -Furosemide 20 mg IV once today -Supplemental oxygen as needed -Nebulized albuterol and duo nebs Hypokalemia - secondary to diuresis above. -40 mEq 2 doses today and recheck in the morning PERIRECTAL ABSCESS - status post surgical debridement and ongoing antibiotic therapy. Pain controlled. -Continue current wound cares -pain control with scheduled APAP -Consult Dr. 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
[2018-04-03] MEDS ORDERED: Furosemide 20 MG/2 ML VIAL IVPUSH ONE (11:00)
[2018-04-03] MEDS: Enoxaparin 40 MG/0.4 ML Syringe SUBCUT SCH (16:50)
[2018-04-04] MEDS: Acetaminophen 325 MG Tab PO SCH ×3 (01:01→09:21)
[2018-04-04] MEDS: Pantoprazole 40 MG Tab.CR PO SCH (07:30)
[2018-04-04] MEDS: Levothyroxine 25 MCG Tab PO SCH (07:30)
[2018-04-04] MEDS: Allopurinol 300 MG Tab PO SCH (09:21)
[2018-04-04] MEDS: Hydrochlorothiazide 12.5 MG Cap PO SCH (09:22)
[2018-04-04] MEDS: Magnesium Oxide 400 MG Tab PO SCH (09:22)
[2018-04-04] MEDS: Doxycycline 100 MG Cap PO SCH (09:22)
[2018-04-04] MEDS: Lactobacillus Rhamnosus GG (Probiotic) Cap PO SCH (09:22)
[2018-04-04] MEDS: Simvastatin 20 MG Tab PO SCH (09:22)
[2018-04-04] MEDS: Lisinopril 20 MG Tab PO SCH (09:23)
[2018-04-04] MEDS: Aspirin 81 MG Tab.EC PO SCH (09:23)
[2018-04-04] MEDS: Metoprolol Succinate 25 MG Tab.ER PO SCH (09:24)
--- NOTE | 2018-04-04 10:26 | PCM.DCSUM1 ---
Discharge Summary - Hospital Course Brief History: 88-year-old male with recent history of perirectal abscess requiring surgical debridement who presented with fever, shortness of breath and cough. He was admitted for management of pneumonia with sepsis and hypoxic respiratory failure necessitating noninvasive ventilation. Diagnosis: Stroke: No - Discharge Data Discharge Date: 04/04/18 Discharge Disposition: DC/Tfer to [facility] 03 Condition: Good - Discharge Diagnosis/Problem(s) (1) Acute respiratory failure with hypoxia SNOMED Code(s): 80498296, 869988832 ICD Code: J96.01 - ACUTE RESPIRATORY FAILURE WITH HYPOXIA Status: Acute Current Visit: Yes (2) Pneumonia SNOMED Code(s): 806329320 ICD Code: J18.9 - PNEUMONIA, UNSPECIFIED ORGANISM Status: Acute Current Visit: Yes Qualifiers: Pneumonia type: due to unspecified organism Laterality: right Lung location: unspecified part of lung Qualified Code(s): J18.9 - Pneumonia, unspecified organism (3) Septic shock due to Staphylococcus SNOMED Code(s): 591019961 ICD Code: A41.2 - SEPSIS DUE TO UNSPECIFIED STAPHYLOCOCCUS; R65.21 - SEVERE SEPSIS WITH SEPTIC SHOCK Status: Acute Current Visit: Yes (4) Perirectal abscess SNOMED Code(s): 12558761 ICD Code: K61.1 - RECTAL ABSCESS Status: Chronic Current Visit: Yes - Patient Summary/Data Consults: Consultations 03/31/18 09:02 Consult to Physician [CONS] Routine Consulting Provider: Vivek Dietrich Call Completed to Consulting Physician: Yes Reason for Consult: Wound care, perirectal abscess 04/02/18 08:59 PT Evaluation and Treatment [CONS] Routine Please Evaluate and Treat. PT Reason for Consult: Strengthening This query below is only for informational purposes and is not editable. Admission Diagnosis/Problem: Pneumonia Hospital Course: Caleb presented to the emergency room from a local assisted with fever, cough and shortness of breath. Workup in the emergency room suggested right lung pneumonia with severe acute hypoxic respiratory failure necessitating noninvasive ventilation. There was evidence for sepsis at the time of presentation. He received IV fluids as well as broad-spectrum IV antibiotics. He was admitted to the intensive care unit with the noninvasive ventilation. Despite adequate volume resuscitation the patient did develop septic shock requiring administration of norepinephrine. Over the first couple of days of the intensive care unit stay he did require noninvasive ventilation. Fortunately with the antibiotic therapy his condition did start to improve. The evidence for septic shock and sepsis resolved. We were able to wean him off of the noninvasive ventilation and transition to nasal cannula. During this time his kidney function remained very stable. As the norepinephrine was able to be weaned off and he was making improvements he did develop evidence for volume overload thought to be related to the early volume resuscitation. This improved over several days with IV diuresis utilizing furosemide. With the diuresis he did develop some hypokalemia but this responded well to supplementation. after the norepinephrine was discontinued and we were no longer requiring noninvasive ventilation he was transferred to the medical/surgical floor. Respiratory status as well as his lower extremity edema has made significant improvement over the past few days as we have been able to diuresis off the excess fluid. We have been able to wean him off supplemental oxygen. His kidney function has remained very stable. He has not had any fevers following de-escalation of antibiotics. His blood cultures did return positive for coag negative Staphylococcus. Antibiotics were de-escalated down to only doxycycline. his respiratory status has continued to improve and he has not had any fevers with this antibiotic change. He remains weak but otherwise is stable and doing well. He would benefit from ongoing physical and occupational therapy at the assisted where he will be receiving subacute rehabilitation. He will need 5 additional days of antibiotic therapy with doxycycline. He is already on a probiotic. He does not need supplemental oxygen at this time. During the hospital stay we also provided management for his perirectal abscess which has recently been debrided. He has been receiving local wound care. There have been no significant difficulties with this wound care during the hospital stay. His pain has been controlled with scheduled acetaminophen. He has follow- up with [facility] in 2 days time. - Patient Instructions Diet: Regular Diet as Tolerated Activity: As Tolerated Showering/Bathing: May Shower Notify Provider of: Fever, Increased Pain, Nausea and/or Vomiting Other/Special Instructions: 1. You were in the hospital for management of a pneumonia complicated by respiratory failure with hypoxia as well as septic shock. Your condition has been improving with antibiotic therapy and additional cares provided during the hospital stay. I do recommend ongoing antibiotic therapy with doxycycline. You should take 100 mg twice daily for 5 more days. 2. Wound care for a buttocks wound - after each stool remove the old dressing and cleanse the area with saline. Pack the wound with Kerlix and then cover with an ABD and secured with tape. Wound care should be provided after each bowel movement and as needed. 3. Referral to physical and occupational therapy for strengthening the setting of generalized weakness following acute illness. 4. Code status - DO NOT RESUSCITATE and DO NOT INTUBATE. 5. Seek medical attention if you develop fever greater than 101, you have severe shortness of breath or if you have severe vomiting or diarrhea. - Discharge Plan *PRESCRIPTION DRUG MONITORING PROGRAM REVIEWED*: Not Applicable *COPY OF PRESCRIPTION DRUG MONITORING REPORT IN PATIENT KEENAN: Not Applicable Prescriptions/Med Rec: Acetaminophen [Tylenol] 650 mg PO Q4H #120 tablet Doxycycline [Vibramycin] 100 mg PO BID #10 cap Lactobacillus Rhamnosus GG [Culturelle] 1 cap PO BID #28 cap Home Medications: Home Meds Allopurinol [Zyloprim] 300 mg PO DAILY 02/20/18 [History] Doxazosin Mesylate [Cardura] 8 mg PO DAILY 02/20/18 [History] Levothyroxine Sodium [Levo-T] 75 mcg PO DAILY 02/20/18 [History] Lisinopril 20 mg PO DAILY 02/20/18 [History] Nitroglycerin [Nitrostat] 0.4 mg PO ASDIRECTED 02/20/18 [History] Simvastatin 20 mg PO BEDTIME 02/20/18 [History] Aspirin [Halfprin] 81 mg PO DAILY 03/30/18 [History] Furosemide [Lasix] 20 mg PO BID 03/30/18 [History] Magnesium Oxide 400 mg PO BID 03/30/18 [History] Metoprolol Succinate [Toprol XL] 25 mg PO DAILY 03/30/18 [History] Acetaminophen [Tylenol] 650 mg PO Q4H #120 tablet 04/04/18 [Rx] Doxycycline [Vibramycin] 100 mg PO BID #10 cap 04/04/18 [Rx] Lactobacillus Rhamnosus GG [Culturelle] 1 cap PO BID #28 cap 04/04/18 [Rx] Naproxen 500 mg PO BID PRN 04/04/18 [History] Patient Handouts: Doxycycline tablets or capsules, Community-Acquired Pneumonia , Adult Referrals: Nathan Butterfield Sr, MD [Primary Care Provider] - (follow-up as needed after the hospital stay) - Discharge Summary/Plan Comment DC Time >30 min.: Yes (45 - complex assisted discharge) - Patient Data Vitals - Most Recent: Last Vital Signs Temp 36.2 C 04/04/18 07:52 Pulse 70 04/04/18 09:24 Resp 16 04/04/18 07:52 BP 133/64 04/04/18 09:24 Pulse Ox 96 04/04/18 07:52 Weight - Most Recent: 88.088 kg I&O - Last 24 hours: Intake & Output 04/03/18 04/04/18 04/04/18 22:59 06:59 14:59 Intake Total 800 Output Total 1800 1400 Balance -1800 -1400 800 Lab Results - Last 24 hrs: Laboratory Results - last 24 hr 04/04/18 04/04/18 Range/Units 05:48 05:48 WBC 10.1 (4.5-11.0) K/uL RBC 3.45 L (4.30-5.90) M/uL Hgb 11.6 L (12.0-15.0) g/dL Hct 35.8 L (40.0-54.0) % MCV 104 H (80-98) fL MCH 34 H (27-31) pg MCHC 32 (32-36) % Plt Count 282 (150-400) K/uL Sodium 137 L (140-148) mmol/L Potassium 3.7 (3.6-5.2) mmol/L Chloride 104 (100-108) mmol/L Carbon Dioxide 27 (21-32) mmol/L Anion Gap 9.7 (5.0-14.0) mmol/L BUN 10 (7-18) mg/dL Creatinine 0.9 (0.8-1.3) mg/dL Est Cr Clr Drug Dosing 58.72 mL/min Estimated GFR (MDRD) > 60 (>60) Glucose 92 (74-106) mg/dL Calcium 8.8 (8.5-10.1) mg/dL JOSE A Results - Last 24 hrs: Microbiology 03/30/18 10:05 Aerobic Blood Culture - Preliminary Blood - Arm, Right NO GROWTH AFTER 4 DAYS Anaerobic Blood Culture - Preliminary NO GROWTH AFTER 4 DAYS Med Orders - Current: Current Medications Acetaminophen (Tylenol) 650 mg PO Q4H INDRA Last Admin: 04/04/18 09:21 Dose: 650 mg Albuterol (Proventil Neb Soln) 2.5 mg NEB Q4H PRN PRN Reason: Shortness Of Breath/wheezing Last Admin: 03/30/18 19:48 Dose: 2.5 mg Albuterol/Ipratropium (Duoneb 3.0-0.5 Mg/3 Ml) 3 ml INH ONETIME [facility] Allopurinol (Zyloprim) 300 mg PO DAILY [facility] Last Admin: 04/04/18 09:21 Dose: 300 mg Aspirin (Halfprin) 81 mg PO DAILY [facility] Last Admin: 04/04/18 09:23 Dose: 81 mg Doxycycline Hyclate (Vibramycin) 100 mg PO BID [facility] Last Admin: 04/04/18 09:22 Dose: 100 mg Enoxaparin Sodium (Lovenox) 40 mg SUBCUT Q24H [facility] Last Admin: 04/03/18 16:50 Dose: 40 mg Hydrochlorothiazide (Hydrochlorothiazide) 12.5 mg PO DAILY [facility] Last Admin: 04/04/18 09:22 Dose: 12.5 mg Lactobacillus Rhamnosus (Culturelle) 2 cap PO BID [facility] Last Admin: 04/04/18 09:22 Dose: 2 cap Levothyroxine Sodium (Levothyroxine) 75 mcg PO DAILY@0730 [facility] Last Admin: 04/04/18 07:30 Dose: 75 mcg Lisinopril (Prinivil) 20 mg PO DAILY [facility] Last Admin: 04/04/18 09:23 Dose: 20 mg Magnesium Hydroxide (Milk Of Magnesia) 30 ml PO Q12H PRN PRN Reason: Constipation Magnesium Oxide (Magnesium Oxide) 400 mg PO BID [facility] Last Admin: 04/04/18 09:22 Dose: 400 mg Metoprolol Succinate (Toprol Xl) 25 mg PO DAILY [facility] Last Admin: 04/04/18 09:24 Dose: 25 mg Ondansetron HCl (Zofran) 4 mg IV Q4H PRN PRN Reason: Nausea/Vomiting Oxycodone HCl (Oxycodone) 5 mg PO Q4H PRN PRN Reason: Pain (moderate 4-6) Pantoprazole Sodium (Protonix) 40 mg PO ACBREAKFAST [facility] Last Admin: 04/04/18 07:30 Dose: 40 mg Polyethylene Glycol (Miralax) 17 gm PO DAILY PRN PRN Reason: Constipation Senna/Docusate Sodium (Senna Plus) 1 tab PO BID PRN PRN Reason: Constipation Simvastatin (Zocor) 20 mg PO DAILY [facility] Last Admin: 04/04/18 09:22 Dose: 20 mg Sodium Chloride (Saline Flush) 10 ml FLUSH ASDIRECTED PRN PRN Reason: Keep Vein Open Discontinued Medications Acetaminophen (Tylenol) 650 mg PO Q4H PRN PRN Reason: Pain (Mild 1-3)/fever Last Admin: 04/02/18 04:51 Dose: 650 mg Albuterol/Ipratropium (Duoneb 3.0-0.5 Mg/3 Ml) 3 ml NEB ONETIME ONE Stop: 03/30/18 12:16 Last Admin: 03/30/18 12:31 Dose: 3 ml Doxazosin Mesylate (Cardura) 8 mg PO DAILY [facility] Last Admin: 03/31/18 08:36 Dose: 8 mg Furosemide (Lasix) 40 mg IVPUSH ONETIME ONE Stop: 03/30/18 12:16 Last Admin: 03/30/18 12:27 Dose: 40 mg Furosemide (Lasix) 20 mg IV ONETIME ONE Stop: 04/01/18 09:46 Last Admin: 04/01/18 09:42 Dose: 20 mg Furosemide (Lasix) 20 mg IVPUSH NOW ONE Stop: 04/01/18 20:01 Last Admin: 04/01/18 19:47 Dose: 20 mg Furosemide (Lasix) 20 mg IVPUSH Q12H [facility] Last Admin: 04/02/18 20:10 Dose: 20 mg Furosemide (Lasix) 20 mg IVPUSH ONETIME ONE Stop: 04/03/18 11:01 Last Admin: 04/03/18 11:38 Dose: 20 mg Lactated Ringer's (Ringers, Lactated) 1,000 mls @ 999 mls/hr IV ASDIRECTED [facility] Last Admin: 03/30/18 10:18 Dose: 999 mls/hr Piperacillin/Tazobactam/ (Dextrose 4.5 gm/ Premix) 100 mls @ 200 mls/hr IV Q6H ONE Stop: 03/30/18 10:29 Last Admin: 03/30/18 10:18 Dose: 200 mls/hr Vancomycin HCl 1.5 gm/ Sodium (Chloride) 250 mls @ 150 mls/hr IV ONETIME ONE Stop: 03/30/18 13:54 Last Admin: 03/30/18 12:20 Dose: 150 mls/hr Piperacillin/Tazobactam/ (Dextrose 3.375 gm/ Premix) 50 mls @ 100 mls/hr IV Q6H [facility] Last Admin: 04/03/18 04:34 Dose: 100 mls/hr Aztreonam/Dextrose 1 gm/ (Premix) 50 mls @ 100 mls/hr IV Q8HR [facility] Last Admin: 04/01/18 05:39 Dose: 100 mls/hr Vancomycin HCl 1.2 gm/ Sodium (Chloride) 250 mls @ 167 mls/hr IV Q12H [facility] Last Admin: 04/01/18 22:50 Dose: 167 mls/hr Lactated Ringer's (Ringers, Lactated) 1,000 mls @ 999 mls/hr IV BOLUS ONE Stop: 03/30/18 16:03 Last Admin: 03/30/18 15:09 Dose: 999 mls/hr Lactated Ringer's (Ringers, Lactated) 1,000 mls @ 500 mls/hr IV ASDIRECTED [facility] Stop: 03/30/18 17:59 Last Admin: 03/30/18 16:11 Dose: 500 mls/hr Lactated Ringer's (Ringers, Lactated) 1,000 mls @ 500 mls/hr IV ASDIRECTED [facility] Stop: 03/30/18 20:29 Last Admin: 03/30/18 18:45 Dose: 500 mls/hr Lactated Ringer's (Ringers, Lactated) 1,000 mls @ 100 mls/hr IV ASDIRECTED [facility] Last Admin: 03/30/18 20:30 Dose: 100 mls/hr Norepinephrine Bitartrate 4 mg (/ Dextrose/Water) 250 mls @ 15 mls/hr IV TITRATE INDRA; Protocol Last Titration: 04/01/18 03:56 Dose: 0 mcg/min, 0 mls/hr Dextrose/Water (Dextrose 5% In Water) Confirm Administered Dose 250 mls @ as directed .ROUTE .STK-MED ONE Stop: 03/30/18 18:40 Last Admin: 03/30/18 19:03 Dose: Not Given Lactated Ringer's (Ringers, Lactated) 1,000 mls @ 25 mls/hr IV ASDIRECTED INDR[facility] Lactated Ringer's (Ringers, Lactated) 1,000 mls @ 500 mls/hr IV ASDIRECTED [facility] Stop: 03/31/18 18:00 Last Admin: 03/31/18 16:00 Dose: 500 mls/hr Lactated Ringer's (Ringers, Lactated) 1,000 mls @ 125 mls/hr IV ASDIRECTED [facility] Last Admin: 04/01/18 04:48 Dose: 125 mls/hr Norepinephrine Bitartrate (Levophed) Confirm Administered Dose 4 mg .ROUTE .STK- MED ONE Stop: 03/30/18 18:38 Last Admin: 03/30/18 19:03 Dose: Not Given Pantoprazole Sodium (Protonix Iv) 40 mg IVPUSH Q24H [facility] Last Admin: 03/31/18 14:37 Dose: 40 mg Potassium Chloride (Klor-Con M20) 40 meq PO ONETIME ONE Stop: 03/31/18 08:31 Last Admin: 03/31/18 08:39 Dose: 40 meq Potassium Chloride (Klor-Con M20) 40 meq PO ONETIME ONE Stop: 04/01/18 15:22 Last Admin: 04/01/18 15:25 Dose: 40 meq Potassium Chloride (Klor-Con M20) 40 meq PO ONETIME ONE Stop: 04/01/18 20:01 Last Admin: 04/01/18 19:47 Dose: 40 meq Potassium Chloride (Klor-Con M20) 40 meq PO ONETIME ONE Stop: 04/02/18 09:01 Last Admin: 04/02/18 09:24 Dose: 40 meq Potassium Chloride (Klor-Con M20) 40 meq PO BID [facility] Stop: 04/03/18 21:01 Last Admin: 04/03/18 20:47 Dose: 40 meq Vancomycin HCl (Vancomycin) 1 gm IV .PHARMACY TO DOSE [facility] Stop: 03/30/18 14:00 Warfarin Sodium (Coumadin) 2.5 mg PO DAILY@1300 [facility] Last Admin: 03/30/18 14:13 Dose: 2.5 mg - Exam Quality Assessment: Denies: Supplemental Oxygen General: Reports: Alert, Oriented, Cooperative, No Acute Distress Neck: Reports: Supple Lungs: Reports: Clear to Auscultation, Normal Respiratory Effort Cardiovascular: Reports: Regular Rate, Regular Rhythm GI/Abdominal Exam: Soft, No Distention Extremities: Pedal Edema (mild residual lower extremity edema to mid pal) Skin: Reports: Warm, Dry Psy/Mental Status: Reports: Alert, Normal Affect *Q Meaningful Use (DIS) - VTE *Q VTE Pharmacological Contraindications *Q: High INR Value
== END 2018-04-04 11:07 | DRG 871 ==
LOC: JP.ED 09:30 → JP.ICU 12:35 → JP.MS 04-02 16:22
PROVIDERS: ADMIT Hospitalist; ATTEND Internal Medicine
DX: A41.9 Sepsis, unspecified organism (principal); A41.1 Sepsis due to other specified staphylococcus; J18.9 Pneumonia, unspecified organism; R65.21 Severe sepsis with septic shock; J96.01 Acute respiratory failure with hypoxia; K61.1 Rectal abscess; Z66 Do not resuscitate; Z87.891 Personal history of nicotine dependence; R50.9 Fever, unspecified; R53.1 Weakness; R06.00 Dyspnea, unspecified; I95.9 Hypotension, unspecified; E87.6 Hypokalemia; E87.70 Fluid overload, unspecified; I10 Essential (primary) hypertension; E03.9 Hypothyroidism, unspecified; Z79.2 Long term (current) use of antibiotics; E78.00 Pure hypercholesterolemia, unspecified; I25.2 Old myocardial infarction; M10.9 Gout, unspecified; M19.90 Unspecified osteoarthritis, unspecified site; Z95.5 Presence of coronary angioplasty implant and graft; H54.7 Unspecified visual loss; Z96.659 Presence of unspecified artificial knee joint; Z89.021 Acquired absence of right finger(s); Z85.9 Personal history of malignant neoplasm, unspecified; Z79.82 Long term (current) use of aspirin; Z88.8 Allergy status to other drugs, medicaments and biological substances
CPT/HCPCS: 36415; 51702; 71046 ×2; 80053; 83605; 85025; 85610 ×2; 87040 ×2; 87077; 87186; 94640; 94660; 96365; 96375; 99291; J1940; J2543; J3370; J7050; J7120; 36600; 80048; 80202; 81001; 82803; 83735; 85027; 87086; 97110-GP; 97162-GP; 97530-GP; 97535-GP; A9270-GY; C9113; J1650; J3490; J7060; J7620-GY